=== PATIENT | female | born 1975 | race Caucasian/White ===

== ENCOUNTER → 2019-08-17 | Outpatient (CLI) | payer MEDICARE ==
[2019-08-17 11:17] LABS: Anisocytosis Slight; Basophils % (A) 1 %; Eosinophils # (A) 0.3 k/uL (0-0.7); Eosinophils % (A) 5 %; HCT 35.3 % (34.0-46.0); HGB 10.6 gm/dL (11.4-16.0); Hypochromasia Marked; Lymphocytes # (A) 2.1 k/uL (1.0-4.8); Lymphocytes % (A) 37 %; MCH 24.5 pg (25.0-35.0); MCHC 30.1 g/dL (31.0-37.0); MCV 81.3 fL (80.0-100.0); Mean Platelet Volume 7.3; Monocytes # (A) 0.3 k/uL (0-1.0); Monocytes % (A) 5 %; Neutrophils % (A) 52 %; Platelet Count 268 k/uL (150-450); RBC 4.34 m/uL (3.80-5.40); RDW 16.6 % (11.5-15.5); WBC 5.7 k/uL (3.8-10.6)
[2019-08-17 11:23] LABS: Partial Thromboplastin Time 23.9 sec (22.0-30.0); Prothrombin Time 10.3 sec (9.0-12.0)
[2019-08-17 11:38] LABS: Appearance,Urine Clear (Clear); Bacteria,Urine Rare /hpf; Bilirubin,Urine Negative (Negative); Blood,Urine Negative (Negative); Color,Urine Yellow; Glucose,Urine (UA) Negative (Negative); Ketones,Urine Negative (Negative); Leukocyte Esterase,Urine Small (Negative); Mucus,Urine Many /hpf; Nitrite,Urine Negative (Negative); PH, Urine 6.5 (5.0-8.0); Protein,Urine Trace (Negative); RBC,Urine 1 /hpf (0-5); Specific Gravity,Urine 1.034 (1.001-1.035); Squamous Epithelial Cell,Urine 5 /hpf (0-4); WBC,Urine 4 /hpf (0-5)
[2019-08-17 16:58] LABS: Alpha Fetoprotein, Tumor Mkr 2.6 ng/mL (0.0-7.9)
[2019-08-17 17:02] LABS: % Iron Saturation 5.81 (12.00-45.00); African American GFR (CKD) 137.4 (60.0-200.0); Albumin 4.1 g/dL (3.80-4.90); Albumin/Globulin Ratio 1.71 (1.60-3.17); Anion Gap 10.3 mmol/L (4.00-12.00); Bilirubin, Conjugated 0.2 mg/dL (0.20-0.40); Bilirubin,Unconjugated 0.3 mg/dL; Calcium 8.9 mg/dL (8.7-10.3); Carbon Dioxide 28.7 mmol/L (21.6-31.8); Ferritin 6.2 ng/mL (10.0-291.0); Globulin 2.4 g/dL (1.6-3.3); Non-African American GFR(CKD) 118.5 (60.0-200.0); Potassium 4.3 mmol/L (3.5-5.5); Total Bilirubin 0.5 mg/dL (0.3-1.2); Total Protein 6.5 g/dL (6.2-8.2)
[2019-08-17 17:27] LABS: Hepatitis A Ab, Total Non-Reactive (Non-Reactive); Hepatitis B Surface AB- Quant 636.1 mIU/mL; Hepatitis B Surface Antibody Reactive (Non-Reactive); Hepatitis B Surface Antigen Non-Reactive (Non-Reactive); Hepatitis C IgG Antibody Non-Reactive (Non-Reactive)
[2019-08-18 11:16] LABS: Ceruloplasmin 32.7 mg/dL (20.0-60.0)
== END | disposition home or self-care (01) ==
LOC: LABWHC1 09:16
PROVIDERS: ATTEND Internal Medicine Gastroenterology
DX: K74.69 Other cirrhosis of liver (principal); R30.9 Painful micturition, unspecified; R74.8 Abnormal levels of other serum enzymes
CPT/HCPCS: 36415; 80053; 81001; 82103; 82105; 82248; 82390; 82465; 82728; 82784; 83516; 83540; 83550; 84080; 84478; 85025; 85610; 85730; 86038; 86704; 86706; 86708; 86803; 87340

== ENCOUNTER 2019-10-25 12:10 | Emergency (ER) | payer MEDICARE, OTHER ==
[2019-10-25 12:16] VITALS: TEMP 99.3
[2019-10-25] MEDS ORDERED: KETOROLAC 60 MG/2 ML VIAL IM STA (12:25)
--- NOTE | 2019-10-25 12:27 | ED ---
General Adult HPI - General Chief complaint: Recheck/Abnormal Lab/Rx Stated complaint: Body aches Time Seen by Provider: 10/25/19 12:10 Source: patient, RN notes reviewed, old records reviewed Mode of arrival: ambulatory Limitations: no limitations - History of Present Illness Initial comments: This 44-year-old female who presents emergency department after having had a urinary transfusion at 1:00 on Saturday. Patient states ever since then she's had complete body aches she states it's her joints and as well as the muscle between her joints. Patient states it's diffuse throughout her body. Patient denies any fever chills per patient denies any difficulty breathing shortness breath per patient denies any chest pressure or pain she just describes whole body aching. Patient denies any abdominal pain patient denies any vomiting or diarrhea. - Related Data Home Medications Medication Instructions Recorded Confirmed Levothyroxine Sodium [Synthroid] 150 mcg PO DAILY 02/11/14 12/10/18 metFORMIN HCL 1,000 mg PO BID 04/29/15 12/10/18 clonazePAM [KlonoPIN] 1 mg PO TID 08/24/16 12/10/18 lamoTRIgine [LaMICtal] 200 mg PO BID 08/24/16 12/10/18 sitaGLIPtin PHOSPHATE [Januvia] 100 mg PO DAILY 08/24/16 12/10/18 Vilazodone HCl [Viibryd] 40 mg PO DAILY 10/30/16 12/10/18 Albuterol Nebulized [Ventolin 2.5 mg INHALATION RT-Q4H PRN 12/10/18 12/10/18 Nebulized] Brimonidine Tartrate [Alphagan P 1 drop LEFT EYE BID 12/10/18 12/10/18 0.2% Ophth Soln] Cariprazine HCl [Vraylar] 3 mg PO DAILY 12/10/18 12/10/18 Dorzolamide/Timolol/Pf 1 tab PO BID 12/10/18 12/10/18 [Dorzolamide-Timolol 2%-0.5%] Latanoprost [Xalatan 0.005%] 1 drop BOTH EYES HS 12/10/18 12/10/18 Levofloxacin [Levaquin] 750 mg PO DAILY 12/10/18 12/10/18 Lisdexamfetamine Dimesylate 70 mg PO DAILY 12/10/18 12/10/18 [Vyvanse] Losartan [Cozaar] 50 mg PO DAILY 12/10/18 12/10/18 Omeprazole 20 mg PO DAILY 12/10/18 12/10/18 busPIRone HCL [Buspar] 30 mg PO BID 12/10/18 12/10/18 hydrOXYzine HCL [Atarax] 25 mg PO TID PRN 12/10/18 12/10/18 Allergies Allergy/AdvReac Type Severity Reaction Status Date / Time No Known Allergies Allergy Verified 10/25/19 14:32 Review of Systems ROS Statement: Those systems with pertinent positive or pertinent negative responses have been documented in the HPI. ROS Other: All systems not noted in ROS Statement are negative. Past Medical History Past Medical History: Heart Failure, Diabetes Mellitus, Eye Disorder, GERD/Reflux, Hypertension, Liver Disease, Osteoarthritis (OA), Skin Disorder, Sleep Apnea/CPAP/BIPAP, Thyroid Disorder Additional Past Medical History / Comment(s): Pt has sleep apnea with cpap. Hx heart failure Feb 2014 (patient states he no longer has heart failure-2019). Optic neurititis, left eye, fatty liver, Rosacea on face. History of Any Multi-Drug Resistant Organisms: MRSA Date of last positivie culture/infection: 2013 MDRO Source:: Chin, Nose Past Surgical History: Cholecystectomy, Tonsillectomy Additional Past Surgical History / Comment(s): Kidney stone stent placed left side. States bled out after tonsilectomy at 27 yrs of age and had blood transfus ion. gastric sleeve december 2018 Past Anesthesia/Blood Transfusion Reactions: No Reported Reaction Past Psychological History: Anxiety, Bipolar, Depression Smoking Status: Former smoker Past Alcohol Use History: Occasional Past Drug Use History: None Reported - Past Family History Son(s) Family Medical History: Seizure Disorder Mother Family Medical History: No Reported History Additional Family Medical History / Comment(s): MOTHER IS ALIVE AND DOING WELL A T AGE 56, Bipolar Father Family Medical History: No Reported History Additional Family Medical History / Comment(s): Hepatitis General Exam - General Exam Comments Initial Comments: GENERAL: Patient is well-developed and well-nourished. Patient is nontoxic and well- hydrated and is in mild distress. ENT: Neck is soft and supple. No significant lymphadenopathy is noted. Oropharynx is clear. Moist mucous membranes. Neck has full range of motion without eliciting any pain. EYES: The sclera were anicteric and conjunctiva were pink and moist. Extraocular movements were intact and pupils were equal round and reactive to light. Eyelids were unremarkable. PULMONARY: Unlabored respirations. Good breath sounds bilaterally. No audible rales rhonchi or wheezing was noted. CARDIOVASCULAR: There is a regular rate and rhythm without any murmurs gallops or rubs. ABDOMEN: Soft and nontender with normal bowel sounds. SKIN: Skin is clear with no lesions or rashes and otherwise unremarkable. NEUROLOGIC: Patient is alert and oriented x3. Cranial nerves II through XII are grossly intact. Motor and sensory are also intact. Normal speech, volume and content. Symmetrical smile. MUSCULOSKELETAL: Normal extremities with adequate strength and full range of motion. LYMPHATICS: No significant lymphadenopathy is noted PSYCHIATRIC: Normal psychiatric evaluation. Limitations: no limitations Course Vital Signs 10/25/19 10/25/19 12:12 13:49 Temperature 99.3 F Pulse Rate 85 89 Respiratory 16 16 Rate Blood Pressure 157/78 136/96 O2 Sat by Pulse 100 99 Oximetry Medical Decision Making - Medical Decision Making I spoke with Dr. Hernandez he agreed that the myalgias are probably most likely from the iron transfusion. Patient received Toradol felt no different so she got a shot of Dilaudid felt considerably better. - Lab Data Result diagrams: 10/25/19 13:48 10/25/19 13:48 Lab Results 10/25/19 10/25/19 Range/Units 13:48 13:48 WBC 9.2 (3.8-10.6) k/uL RBC 4.15 (3.80-5.40) m/uL Hgb 10.2 L (11.4-16.0) gm/dL Hct 33.5 L (34.0-46.0) % MCV 80.6 (80.0-100.0) fL MCH 24.6 L (25.0-35.0) pg MCHC 30.6 L (31.0-37.0) g/dL RDW 16.4 H (11.5-15.5) % Plt Count 264 (150-450) k/uL Neutrophils % 81 % Lymphocytes % 9 % Monocytes % 5 % Eosinophils % 2 % Basophils % 1 % Neutrophils # 7.5 (1.3-7.7) k/uL Lymphocytes # 0.8 L (1.0-4.8) k/uL Monocytes # 0.5 (0-1.0) k/uL Eosinophils # 0.2 (0-0.7) k/uL Basophils # 0.0 (0-0.2) k/uL Hypochromasia Marked Anisocytosis Slight Sodium 134 L (137-145) mmol/L Potassium 4.4 (3.5-5.1) mmol/L Chloride 101 (98-107) mmol/L Carbon Dioxide 26 (22-30) mmol/L Anion Gap 7 mmol/L BUN 7 (7-17) mg/dL Creatinine 0.45 L (0.52-1.04) mg/dL Est GFR (CKD-EPI)AfAm >90 (>60 ml/min/1.73 sqM) Est GFR (CKD-EPI)NonAf >90 (>60 ml/min/1.73 sqM) Glucose 97 (74-99) mg/dL Calcium 9.3 (8.4-10.2) mg/dL Total Bilirubin 1.0 (0.2-1.3) mg/dL AST 33 (14-36) U/L ALT 20 (4-34) U/L Alkaline Phosphatase 145 H (38-126) U/L Creatine Kinase 43 (30-135) U/L C-Reactive Protein 28.8 H (<10.0) mg/L Total Protein 6.9 (6.3-8.2) g/dL Albumin 4.1 (3.5-5.0) g/dL Disposition Clinical Impression: Myalgia and myositis, unspecified Disposition: HOME SELF-CARE Condition: Good Is patient prescribed a controlled substance at d/c from ED?: No Referrals: Nonstaff,Physician [Primary Care Provider] - 1-2 days Time of Disposition: 14:36
[2019-10-25] MEDS ORDERED: HYDROmorphone 1 MG/ML 1 ML SYRINGE IVP STA (13:31)
[2019-10-25 14:03] LABS: Anisocytosis Slight; Basophils % (A) 1 %; Eosinophils # (A) 0.2 k/uL (0-0.7); Eosinophils % (A) 2 %; HCT 33.5 % (34.0-46.0); HGB 10.2 gm/dL (11.4-16.0); Hypochromasia Marked; Lymphocytes # (A) 0.8 k/uL (1.0-4.8); Lymphocytes % (A) 9 %; MCH 24.6 pg (25.0-35.0); MCHC 30.6 g/dL (31.0-37.0); MCV 80.6 fL (80.0-100.0); Mean Platelet Volume 7.4; Monocytes # (A) 0.5 k/uL (0-1.0); Monocytes % (A) 5 %; Neutrophils # (A) 7.5 k/uL (1.3-7.7); Neutrophils % (A) 81 %; Platelet Count 264 k/uL (150-450); RBC 4.15 m/uL (3.80-5.40); RDW 16.4 % (11.5-15.5); WBC 9.2 k/uL (3.8-10.6)
[2019-10-25 14:14] LABS: ALT 20 U/L (4-34); AST 33 U/L (14-36); African American GFR (CKD) >90 (>60 ml/min/1.73 sqM); Albumin 4.1 g/dL (3.5-5.0); Alkaline Phosphatase 145 U/L (38-126); Anion Gap 7 mmol/L; Blood Urea Nitrogen 7 mg/dL (7-17); C Reactive Protein 28.8 mg/L (<10.0); Calcium 9.3 mg/dL (8.4-10.2); Carbon Dioxide 26 mmol/L (22-30); Chloride 101 mmol/L (98-107); Creatine Kinase 43 U/L (30-135); Glucose 97 mg/dL (74-99); Non-African American GFR(CKD) >90 (>60 ml/min/1.73 sqM); Potassium 4.4 mmol/L (3.5-5.1); Sodium 134 mmol/L (137-145); Total Protein 6.9 g/dL (6.3-8.2)
[2019-10-25] MEDS ORDERED: ACET/COD 300 MG/30 MG STARTER PACK 6 TAB BTL PO STA (14:36)
[2019-10-25 14:48] VITALS: BP 123/74; PULSE 79; RESP 18
== END 2019-10-25 14:47 | disposition home or self-care (01) ==
LOC: EC 12:10
DX: M60.9 Myositis, unspecified (principal); I11.0 Hypertensive heart disease with heart failure; I50.9 Heart failure, unspecified; K21.9 Gastro-esophageal reflux disease without esophagitis; M19.90 Unspecified osteoarthritis, unspecified site; G47.30 Sleep apnea, unspecified; E07.9 Disorder of thyroid, unspecified; E11.41 Type 2 diabetes mellitus with diabetic mononeuropathy; F41.9 Anxiety disorder, unspecified; F31.9 Bipolar disorder, unspecified; Z79.890 Hormone replacement therapy; Z79.84 Long term (current) use of oral hypoglycemic drugs; Z79.899 Other long term (current) drug therapy; Z99.89 Dependence on other enabling machines and devices; Z87.891 Personal history of nicotine dependence; Z86.14 Personal history of Methicillin resistant Staphylococcus aureus infection
CPT/HCPCS: 36415; 80053; 82550; 85025; 86140; 99284; 96374; 96372; J1885; J1170

== ENCOUNTER 2019-10-25 21:43 | Observation (INO) | payer MEDICARE, OTHER ==
--- NOTE | 2019-10-25 22:09 | ED ---
Recheck HPI - General Chief Complaint: Recheck/Abnormal Lab/Rx Stated Complaint: Body aches, fever Time Seen by Provider: 10/25/19 22:02 Source: patient Mode of arrival: ambulatory Limitations: no limitations - History of Present Illness Initial Comments: This is a 44-year-old female presented for reevaluation diffuse body aches but now presented with fever today. Patient recently going through iron transfusions and is closer severe aches and pains, she was seen earlier in the ER felt better upon discharge was symptoms have returned. Patient can't rest comfortably she has no real significant shortness of breath or chest pain no nausea vomiting or diarrhea. MD Complaint: other (Reevaluation for continued pain now with fever) -: days(s) Returns Today for: persistent/worsening pain related to initial visit Symptoms Since Prior Visit: worsening pain, worsening swelling Context: planned re-check Associated Symptoms: fever, chills, abdominal pain Treatments Prior to Arrival: other medications - Related Data Home Medications Medication Instructions Recorded Confirmed Levothyroxine Sodium [Synthroid] 150 mcg PO DAILY 02/11/14 10/25/19 metFORMIN HCL 1,000 mg PO BID 04/29/15 10/25/19 clonazePAM [KlonoPIN] 1 mg PO BID PRN 08/24/16 10/25/19 lamoTRIgine [LaMICtal] 200 mg PO BID 08/24/16 10/25/19 Brimonidine Tartrate [Alphagan P 1 drop LEFT EYE BID 12/10/18 10/25/19 0.2% Ophth Soln] Dorzolamide/Timolol/Pf 1 drop LEFT EYE BID 12/10/18 10/25/19 [Dorzolamide-Timolol 2%-0.5%] Latanoprost [Xalatan 0.005%] 1 drop BOTH EYES HS 12/10/18 10/25/19 Losartan [Cozaar] 50 mg PO DAILY 12/10/18 10/25/19 busPIRone HCL [Buspar] 30 mg PO BID 12/10/18 10/25/19 Biotin 5 mg PO DAILY 10/25/19 10/25/19 [place] Carbonate 300 mg PO DAILY 10/25/19 10/25/19 [place] 600 mg PO HS 10/25/19 10/25/19 Multivitamins, Thera [Multivitamin 1 tab PO DAILY 10/25/19 10/25/19 (formulary)] Pantoprazole Sodium 20 mg PO BID 10/25/19 10/25/19 Sucralfate [Carafate] 1 gm PO ACHS 10/25/19 10/25/19 Allergies Allergy/AdvReac Type Severity Reaction Status Date / Time No Known Allergies Allergy Verified 10/25/19 23:13 Review of Systems ROS Statement: Those systems with pertinent positive or pertinent negative responses have been documented in the HPI. ROS Other: All systems not noted in ROS Statement are negative. Past Medical History Past Medical History: Heart Failure, Diabetes Mellitus, Eye Disorder, GERD/Reflux, Hypertension, Liver Disease, Osteoarthritis (OA), Skin Disorder, Sleep Apnea/CPAP/BIPAP, Thyroid Disorder Additional Past Medical History / Comment(s): Pt has sleep apnea with cpap. Hx heart failure Feb 2014 (patient states he no longer has heart failure-2018). Optic neurititis, left eye, fatty liver, Rosacea on face. History of Any Multi-Drug Resistant Organisms: MRSA Date of last positivie culture/infection: 2013 MDRO Source:: Chin, Nose Past Surgical History: Cholecystectomy, Tonsillectomy Additional Past Surgical History / Comment(s): Kidney stone stent placed left side. States bled out after tonsilectomy at 27 yrs of age and had blood transfusion. gastric sleeve december 2018 Past Anesthesia/Blood Transfusion Reactions: No Reported Reaction Past Psychological History: Anxiety, Bipolar, Depression Smoking Status: Former smoker Past Alcohol Use History: Occasional Past Drug Use History: None Reported - Past Family History Son(s) Family Medical History: Seizure Disorder Mother Family Medical History: No Reported History Additional Family Medical History / Comment(s): MOTHER IS ALIVE AND DOING WELL AT AGE 56, Bipolar Father Family Medical History: No Reported History Additional Family Medical History / Comment(s): Hepatitis General Exam Limitations: no limitations General appearance: alert, in no apparent distress Head exam: Present: atraumatic, normocephalic, normal inspection Eye exam: Present: normal appearance, PERRL, EOMI. Absent: scleral icterus, conjunctival injection, periorbital swelling ENT exam: Present: normal exam, mucous membranes moist Neck exam: Present: normal inspection. Absent: tenderness, meningismus, lymphadenopathy Respiratory exam: Present: normal lung sounds bilaterally. Absent: respiratory distress, wheezes, rales, rhonchi, stridor Cardiovascular Exam: Present: regular rate, normal rhythm, normal heart sounds. Absent: systolic murmur, diastolic murmur, rubs, gallop, clicks GI/Abdominal exam: Present: soft, normal bowel sounds. Absent: distended, tenderness, guarding, rebound, rigid Extremities exam: Present: normal inspection, full ROM, normal capillary refill. Absent: tenderness, pedal edema, joint swelling, calf tenderness Back exam: Present: normal inspection Neurological exam: Present: alert, oriented X3, CN II-XII intact Psychiatric exam: Present: normal affect, normal mood Skin exam: Present: warm, dry, intact, normal color. Absent: rash Course Vital Signs 10/25/19 10/25/19 21:54 23:49 Temperature 103.1 F H 102.4 F H Pulse Rate 98 101 H Respiratory 18 18 Rate Blood Pressure 108/62 160/70 O2 Sat by Pulse 100 97 Oximetry - Reevaluation(s) Reevaluation #1: 10/25/19 23:00 Medical records reviewed 10/25/19 23:00 Did evaluate patient's prior ER visits for Reevaluation #2: 10/25/19 23:00 Patient with improved symptoms here in the ER - Consultations Consultation #1: Spoke with Dr. Scott who is okay with patient Medical Decision Making - Medical Decision Making 44 female DF for evaluation patient DF for evaluation of diffuse body aches and pains now of fever. No shortness of breath currently. No abdominal pain but does have just diffuse pain in general. Patient will be admitted for symptomatic therapy - Lab Data Result diagrams: 10/25/19 23:00 10/25/19 23:00 - EKG Data -: EKG Interpreted by Me (EKG is sinus rhythm 82 [place] 128 QRS 78 QTc 408) - Radiology Data Radiology results: report reviewed (Chest x-rays negative for acute disease), image reviewed Disposition Clinical Impression: Myalgia and myositis, unspecified, Fever Disposition: ADMITTED IP TO THIS [facility] Condition: Fair Is patient prescribed a controlled substance at d/c from ED?: No
[2019-10-25] MEDS ORDERED: SODIUM CHLORIDE 0.9% 1,000 ML IV ONE (22:58)
[2019-10-25] MEDS ORDERED: KETOROLAC 30 MG/ML 1 ML VIAL IVP STA (22:58)
[2019-10-25] MEDS ORDERED: HYDROmorphone 1 MG/ML 1 ML SYRINGE IVP STA (22:58)
[2019-10-25 23:09] LABS: Anisocytosis Slight; Basophils % (A) 0 %; Eosinophils # (A) 0.2 k/uL (0-0.7); Eosinophils % (A) 2 %; HCT 36.5 % (34.0-46.0); HGB 11.5 gm/dL (11.4-16.0); Hypochromasia Marked; Lymphocytes # (A) 1.1 k/uL (1.0-4.8); Lymphocytes % (A) 11 %; MCH 25.8 pg (25.0-35.0); MCHC 31.4 g/dL (31.0-37.0); MCV 82.1 fL (80.0-100.0); Monocytes # (A) 0.4 k/uL (0-1.0); Monocytes % (A) 4 %; Neutrophils % (A) 83 %; Platelet Count 258 k/uL (150-450); RBC 4.45 m/uL (3.80-5.40); RDW 16.1 % (11.5-15.5); WBC 10.9 k/uL (3.8-10.6)
[2019-10-25] MEDS ORDERED: ACETAMINOPHEN TAB 500 MG TAB PO STA (23:20)
[2019-10-25] MEDS ORDERED: IBUPROFEN 400 MG TAB PO PRN (23:20)
[2019-10-25] MEDS ORDERED: IBUPROFEN 600 MG TAB PO STA (23:20)
[2019-10-25 23:25] LABS: D-Dimer 0.52 mg/L FEU (<0.60); INR 1.1 (<1.2); Partial Thromboplastin Time 25.5 sec (22.0-30.0)
[2019-10-25 23:29] LABS: ALT 27 U/L (4-34); AST 43 U/L (14-36); African American GFR (CKD) >90 (>60 ml/min/1.73 sqM); Albumin 4.8 g/dL (3.5-5.0); Alkaline Phosphatase 175 U/L (38-126); Anion Gap 10 mmol/L; Blood Urea Nitrogen 9 mg/dL (7-17); C Reactive Protein 61.4 mg/L (<10.0); Calcium 9.4 mg/dL (8.4-10.2); Carbon Dioxide 26 mmol/L (22-30); Chloride 98 mmol/L (98-107); Glucose 102 mg/dL (74-99); LDH 471 U/L (313-618); Magnesium 1.7 mg/dL (1.6-2.3); Non-African American GFR(CKD) >90 (>60 ml/min/1.73 sqM); Sodium 134 mmol/L (137-145); Total Bilirubin 1.4 mg/dL (0.2-1.3); Total Protein 7.9 g/dL (6.3-8.2)
--- NOTE | 2019-10-25 23:45 | XR ---
EXAMINATION TYPE: XR chest 1V portable DATE OF EXAM: 10/25/2019 COMPARISON: 12/10/2018 HISTORY: Pneumonia Short of breath TECHNIQUE: FINDINGS: There is no heart failure nor confluent pneumonic infiltrate. Costophrenic angles are clear . There are no hilar masses. There are small calcified granuloma at the pulmonary ronald. Bony thorax i s intact. There is no pleural effusion. IMPRESSION: No active cardiopulmonary disease. No adverse change..
[2019-10-26] MEDS: LITHIUM CARBONATE 300 MG CAP PO SCH ×3 (02:01→22:04)
--- NOTE | 2019-10-26 03:26 | P.HPIM ---
History of Present Illness H&P Date: 10/26/19 Chief Complaint: fever diffuse body aches 44 year old female with gastric bypass surgery Dec 2018, DM, HTN, GERD patient states that she was at baseline status of health up until saturday , when she received scheduled iron infusion due to chronic anemia from her surgery. the n she started having body aches the next day , which got worse today, she came to the ED and ran some tests, then was sent home with tylenol and codiene. however this evening her body aches got even worse , associated with fever, and she decided to come to the ED again. she denies any URI symptoms , loss of smell or taste sensation, denies sore throat or sick contact. denies any acute diarrhea, but she has chronic irritable bowel. denies any urinary changes. in [facility] ED blood work showed mild leukocytosis. but she had high fever of 103. she is admitted for further workup Review of Systems Pertinent positives as noted in HPI. All other systems were reviewed and are negative Past Medical History Past Medical History: Heart Failure, Diabetes Mellitus, Eye Disorder, GERD/Reflux, Hypertension, Liver Disease, Osteoarthritis (OA), Skin Disorder, Sleep Apnea/CPAP/BIPAP, Thyroid Disorder Additional Past Medical History / Comment(s): Pt has sleep apnea with cpap. Hx heart failure Feb 2014 (patient states he no longer has heart failure-2019). Optic neurititis, left eye, fatty liver, Rosacea on face. History of Any Multi-Drug Resistant Organisms: MRSA Date of last positivie culture/infection: 2013 MDRO Source:: Chin, Nose Past Surgical History: Cholecystectomy, Tonsillectomy Additional Past Surgical History / Comment(s): Kidney stone stent placed left side. States bled out after tonsilectomy at 27 yrs of age and had blood transfusion. gastric sleeve december 2018 Past Anesthesia/Blood Transfusion Reactions: No Reported Reaction Past Psychological History: Anxiety, Bipolar, Depression Additional Psychological History / Comment(s): PT LIVES WITH 8 YR OLD SON. 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 Smoking Status: Former smoker Past Alcohol Use History: Occasional Additional Past Alcohol Use History / Comment(s): Patient states that she drink alcohol once a week. Past Drug Use History: None Reported - Past Family History Son(s) Family Medical History: Seizure Disorder Mother Family Medical History: No Reported History Additional Family Medical History / Comment(s): MOTHER IS ALIVE AND DOING WELL AT AGE 56, Bipolar Father Family Medical History: No Reported History Additional Family Medical History / Comment(s): Hepatitis Medications and Allergies Home Medications Medication Instructions Recorded Confirmed Type Levothyroxine Sodium [Synthroid] 150 mcg PO DAILY 02/11/14 10/25/19 History metFORMIN HCL 1,000 mg PO BID 04/29/15 10/25/19 History clonazePAM [KlonoPIN] 1 mg PO BID PRN 08/24/16 10/25/19 History lamoTRIgine [LaMICtal] 200 mg PO BID 08/24/16 10/25/19 History Brimonidine Tartrate [Alphagan P 1 drop LEFT EYE BID 12/10/18 10/25/19 History 0.2% Ophth Soln] Dorzolamide/Timolol/Pf 1 drop LEFT EYE BID 12/10/18 10/25/19 History [Dorzolamide-Timolol 2%-0.5%] Latanoprost [Xalatan 0.005%] 1 drop BOTH EYES HS 12/10/18 10/25/19 History Losartan [Cozaar] 50 mg PO DAILY 12/10/18 10/25/19 History busPIRone HCL [Buspar] 30 mg PO BID 12/10/18 10/25/19 History Biotin 5 mg PO DAILY 10/25/19 10/25/19 History [place] Carbonate 300 mg PO DAILY 10/25/19 10/25/19 History [place] Carbonate 600 mg PO HS 10/25/19 10/25/19 History Multivitamins, Thera [Multivitamin 1 tab PO DAILY 10/25/19 10/25/19 History (formulary)] Pantoprazole Sodium 20 mg PO BID 10/25/19 10/25/19 History Sucralfate [Carafate] 1 gm PO ACHS 10/25/19 10/25/19 History Allergies Allergy/AdvReac Type Severity Reaction Status Date / Time No Known Allergies Allergy Verified 10/25/19 23:13 Physical Exam Vitals: Vital Signs Temp Pulse Resp BP Pulse Ox 10/25/19 23:49 102.4 F H 101 H 18 160/70 97 10/25/19 21:54 103.1 F H 98 18 108/62 100 Intake and Output 10/25/19 10/25/19 10/26/19 14:59 22:59 06:59 Other: Weight 90.265 kg 90.265 kg Constitutional: No acute distress, conversant, pleasant Eyes: Anicteric sclerae, moist conjunctiva, Pupils equal round reactive to light ENMT: NC/AT Oropharynx clear, no erythema, or exudates Neck: Supple, FROM, no masses, or JVD No carotid bruits No thyromegaly Lungs: Clear to auscultation Clear to percussion Normal respiratory effort, no accessory muscle use Cardiovascular: Heart regular in rate and rhythm, No murmurs, gallops, or rubs No peripheral edema Abdominal: Soft, parada sign positive otherwise Nontender, no guarding, rebound or rigidity Abdomen moving with respiration Normoactive bowel sounds No hepatomegaly, No splenomegaly No palpable mass No abdominal wall hernia noted Skin: Normal temperature, tone, texture, turgor No induration No subcutaneous nodules No rash, lesions No ulcers Extremities: No digital cyanosis No clubbing Pedal pulses intact and symmetrical Radial pulses intact and symmetrical No calf tenderness Psychiatric: Alert and oriented to person, place and time Appropriate affect fair judgement Neuro Muscles Strength 5/5 in all 4 extremities Sensation to light touch grossly present throughout Cranial nerves II-XII grossly intact No focal sensory deficits Lymphatics: palpable cervical /submandibular LN no palpable supraclavicular , or inguinal lymph nodes Results CBC & Chem 7: 10/25/19 23:00 10/25/19 23:00 Labs: Abnormal Lab Results - Last 24 Hours (Table) 10/25/19 10/25/19 Range/Units 23:00 23:00 WBC 10.9 H (3.8-10.6) k/uL RDW 16.1 H (11.5-15.5) % Neutrophils # 9.0 H (1.3-7.7) k/uL Sodium 134 L (137-145) mmol/L Glucose 102 H (74-99) mg/dL Total Bilirubin 1.4 H (0.2-1.3) mg/dL AST 43 H (14-36) U/L Alkaline Phosphatase 175 H (38-126) U/L C-Reactive Protein 61.4 H (<10.0) mg/L Thrombosis Risk Factor Assmnt - Choose All That Apply Any of the Below Risk Factors Present?: Yes Each Factor Represents 1 point: Age 41-60 years, Obesity (BMI >25) Other Risk Factors: No Thrombosis Risk Factor Assessment Total Risk Factor Score: 2 Thrombosis Risk Factor Assessment Level: Low Risk Assessment and Plan Assessment: fever and diffuse body aches, rule out COVID 19, vs possible side effect of iron dextran infusion supportive care symptomtatic control follow up cultures, COVID 19 testing LDH , D dimer , lymphocytes within normal limits check CPK CRP elevated CXR negative check liver US, patient has history of gastric bypass 12/2018 history of cholecystectomy chronic conditions DM, hold oral hypoglycemic agents , start insulin sliding scale GERD, PPI Hypertension , resume home meds hypothyroid , levothyroxine CODE STATUS full code DVT prophylaxis: heparin sc tid Discussed with: Patient, ER, RN Anticipated length of stay < than [address]: home A total of 75 minutes was spent on the care of this complex patient more than 50% of the time was spent in counseling and care coordination.
[2019-10-26] MEDS: HYDROmorphone 1 MG/ML 1 ML SYRINGE IVP PRN ×4 (04:08→19:31)
[2019-10-26] MEDS: ACETAMINOPHEN TAB 325 MG TAB PO PRN ×3 (06:25→19:31)
[2019-10-26] MEDS: LEVOTHYROXINE 75 MCG TAB PO SCH (06:25)
[2019-10-26 07:15] LABS: Glucose,Whole Blood 132 mg/dL (75-99)
[2019-10-26] MEDS: lamoTRIgine 100 MG TAB PO SCH ×2 (07:51→22:04)
[2019-10-26] MEDS: LOSARTAN 50 MG TAB PO SCH (07:51)
[2019-10-26] MEDS: PANTOPRAZOLE 40 MG TABLET PO SCH ×2 (07:51→22:05)
[2019-10-26] MEDS: INSULIN ASPART (NovoLOG) 100 UNIT/ML VIAL SQ SCH ×4 (07:51→21:10)
[2019-10-26] MEDS: HEPARIN SODIUM,PORCINE 5,000 UNIT/ML 1 ML VIAL SQ SCH ×3 (07:51→23:50)
[2019-10-26] MEDS: SUCRALFATE 1 GM TAB PO SCH ×4 (07:51→22:05)
[2019-10-26] MEDS: busPIRone HCl 10 MG TAB PO SCH ×2 (07:51→22:04)
[2019-10-26] MEDS: DORZOLAMIDE-TIMOLOL 2.23%/0.68 10ML BTL LEFT EYE SCH ×2 (07:52→22:04)
[2019-10-26] MEDS: BRIMONIDINE TARTRATE 0.2% DROPS 5 ML BTL LEFT EYE SCH ×2 (07:52→22:03)
--- NOTE | 2019-10-26 09:27 | US ---
EXAMINATION TYPE: US liver DATE OF EXAM: 10/26/2019 COMPARISON: CT Chest CLINICAL HISTORY: elevated liver enzymes, tenderness to exam. Elevated LFT's, GB removed EXAM MEASUREMENTS: Liver Length: 24.5 cm CBD: 0.6 cm Right Kidney: 13.4 x 4.2 x 5.6 cm Pancreas: wnl, tail obscured by overlying bowel gas Liver: Enlarged, heterogeneous, difficult to penetrate Gallbladder: Surgically absent Evidence for sonographic Mendosa's sign: No CBD: wnl Right Kidney: wnl IMPRESSION: Fatty liver.
[2019-10-26 11:41] LABS: Glucose,Whole Blood 119 mg/dL (75-99)
[2019-10-26 12:14] LABS: Ferritin 633.5 ng/mL (10.0-291.0)
--- NOTE | 2019-10-26 14:46 | P.PN ---
Subjective Progress Note Date: 10/26/19 Patient is a 44-year-old female with a PMH of type II DM, hypothyroidism, iron deficiency anemia, and hypertension who had presented to the ED with complaints of fever and myalgias. She was thereby admitted to the medicine service with rule out Covid-19. The patient was seen and evaluated at the bedside on 10/25. She reported continued myalgias and fever. She denied any additional complaints. Denied dysuria, shortness of breath, abdominal pain, nausea, vomiting, or diarrhea. Objective - Vital Signs Vital signs: Vital Signs Temp 102.3 F H 10/26/19 11:54 Pulse 103 H 10/26/19 07:00 Resp 18 10/26/19 07:00 BP 131/73 10/26/19 07:00 Pulse Ox 96 10/26/19 07:00 Intake & Output 10/25/19 10/26/19 10/26/19 18:59 06:59 18:59 Weight 90.265 kg Other: Voiding Method Toilet - Exam General: Non-toxic, in no acute distress, appears stated age, obese HEENT: NC/AT, anicteric sclerae, moist conjunctiva, no lid-lag, PERRLA Cardiovascular: S1/S2 wnl, no murmurs, rubs, or gallops Lungs: Clear to auscultation, normal respiratory effort, no accessory muscle use Abdominal: Soft, non-tender, non-distended, no guarding, rebound, or rigidity Skin: Warm, dry Extremities: No edema or contractures Psychiatric: Alert and oriented to person, place and time, appropriate affect Neuro: CN II-XII grossly intact, Strength 5/5 in all 4 extremities, Speech intact, Sensation to light touch grossly intact throughout - Labs CBC & Chem 7: 10/25/19 23:00 10/25/19 23:00 Labs: Abnormal Lab Results - Last 24 Hours (Table) 10/25/19 10/25/19 10/25/19 Range/Units 23:00 23:00 23:00 WBC 10.9 H (3.8-10.6) k/uL RDW 16.1 H (11.5-15.5) % Neutrophils # 9.0 H (1.3-7.7) k/uL Sodium 134 L (137-145) mmol/L Glucose 102 H (74-99) mg/dL POC Glucose (mg/dL) (75-99) mg/dL Ferritin 633.5 H (10.0-291.0) ng/mL Total Bilirubin 1.4 H (0.2-1.3) mg/dL AST 43 H (14-36) U/L Alkaline Phosphatase 175 H (38-126) U/L C-Reactive Protein 61.4 H (<10.0) mg/L Procalcitonin 0.16 H (0.02-0.09) ng/mL 10/26/19 10/26/19 Range/Units 07:14 11:39 WBC (3.8-10.6) k/uL RDW (11.5-15.5) % Neutrophils # (1.3-7.7) k/uL Sodium (137-145) mmol/L Glucose (74-99) mg/dL POC Glucose (mg/dL) 132 H 119 H (75-99) mg/dL Ferritin (10.0-291.0) ng/mL Total Bilirubin (0.2-1.3) mg/dL AST (14-36) U/L Alkaline Phosphatase (38-126) U/L C-Reactive Protein (<10.0) mg/L Procalcitonin (0.02-0.09) ng/mL Assessment and Plan Plan: Myalgias, fever, high suspicion for Covid-19 -Testing pending -Ferritin, pro-calcitonin, and CRP elevated -Liver ultrasound showing fatty infiltration otherwise unremarkable -Supportive care Type II DM -Lispro sliding scale blood glucose monitoring -Check A1c Hypertension, hypothyroidism -Continue with home meds DVT prophylaxis -Heparin subq The patient is admitted with an anticipated less than 2 midnight stay for evaluation of fever, myalgias CODE STATUS: Full Code Discussed with: Patient Anticipated discharge date: 1-[address]: Home A total of 30 minutes was spent on the care of this complex patient more than 50% of the time was spent in counseling and care coordination.
[2019-10-26 16:22] LABS: Glucose,Whole Blood 110 mg/dL (75-99)
--- NOTE | 2019-10-26 17:17 | P.CONS ---
History of Present Illness - Reason for Consult Consult date: 10/26/19 Reaction to parental Iron Requesting physician: Matthieu Resendiz - Chief Complaint Fever/pain - History of Present Illness Loan is a 44 year old female who recently received her firs parental iron infusion through build and deployment engineer at [facility] [address] [place]. Apparently when she returned home started to note some body aches, fevers and chills. Her fever reached a max of 103 therefore she presented to Emergency. Review of Systems A 14 point review of systems assessed and completed and all negative except HPI Past Medical History Past Medical History: Heart Failure, Diabetes Mellitus, Eye Disorder, GERD/Reflux, Hypertension, Liver Disease, Osteoarthritis (OA), Skin Disorder, Sleep Apnea/CPAP/BIPAP, Thyroid Disorder Additional Past Medical History / Comment(s): Pt has sleep apnea with cpap. Hx heart failure Feb 2014 (patient states he no longer has heart failure-2019). Optic neurititis, left eye, fatty liver, Rosacea on face. History of Any Multi-Drug Resistant Organisms: MRSA Year Discovered:: 2013 MDRO Source:: Chin, Nose Past Surgical History: Cholecystectomy, Tonsillectomy Additional Past Surgical History / Comment(s): Kidney stone stent placed left side. States bled out after tonsilectomy at 27 yrs of age and had blood transf usion. gastric sleeve december 2018 Past Anesthesia/Blood Transfusion Reactions: No Reported Reaction Past Psychological History: Anxiety, Bipolar, Depression Smoking Status: Former smoker Past Alcohol Use History: Occasional Past Drug Use History: None Reported - Past Family History Son(s) Family Medical History: Seizure Disorder Mother Family Medical History: No Reported History Additional Family Medical History / Comment(s): MOTHER IS ALIVE AND DOING WELL AT AGE 56, Bipolar Father Family Medical History: No Reported History Additional Family Medical History / Comment(s): Hepatitis Medications and Allergies Home Medications Medication Instructions Recorded Confirmed Type Levothyroxine Sodium [Synthroid] 150 mcg PO DAILY 02/11/14 10/25/19 History metFORMIN HCL 1,000 mg PO BID 04/29/15 10/25/19 History clonazePAM [KlonoPIN] 1 mg PO BID PRN 08/24/16 10/25/19 History lamoTRIgine [LaMICtal] 200 mg PO BID 08/24/16 10/25/19 History Brimonidine Tartrate [Alphagan P 1 drop LEFT EYE BID 12/10/18 10/25/19 History 0.2% Ophth Soln] Dorzolamide/Timolol/Pf 1 drop LEFT EYE BID 12/10/18 10/25/19 History [Dorzolamide-Timolol 2%-0.5%] Latanoprost [Xalatan 0.005%] 1 drop BOTH EYES HS 12/10/18 10/25/19 History Losartan [Cozaar] 50 mg PO DAILY 12/10/18 10/25/19 History busPIRone HCL [Buspar] 30 mg PO BID 12/10/18 10/25/19 History Biotin 5 mg PO DAILY 10/25/19 10/25/19 History [place] Carbonate 300 mg PO DAILY 10/25/19 10/25/19 History [place] Carbonate 600 mg PO HS 10/25/19 10/25/19 History Multivitamins, Thera [Multivitamin 1 tab PO DAILY 10/25/19 10/25/19 History (formulary)] Pantoprazole Sodium 20 mg PO BID 10/25/19 10/25/19 History Sucralfate [Carafate] 1 gm PO ACHS 10/25/19 10/25/19 History Allergies Allergy/AdvReac Type Severity Reaction Status Date / Time No Known Allergies Allergy Verified 10/25/19 23:13 Physical Exam Vitals: Vital Signs Temp Pulse Pulse Resp BP BP Pulse Ox 10/26/19 15:00 100.6 F H 85 18 136/72 96 10/26/19 11:54 102.3 F H 10/26/19 07:00 99.5 F 103 H 18 131/73 96 10/26/19 03:40 16 10/26/19 00:00 100.4 F H 99 18 139/71 93 L 10/25/19 23:49 102.4 F H 101 H 18 160/70 97 10/25/19 21:54 103.1 F H 98 18 108/62 100 Intake and Output 10/26/19 10/26/19 10/26/19 06:59 14:59 22:59 Other: Voiding Method Toilet # Voids 2 Weight 90.265 kg Gen: ALert and oriented, nad Neck: Supple No adenopathy Lungs: CTA bilateral, no increased effort Heart: RRR Abdomen: Soft, non distended, generalized tenderness no edema no rash Psych: Anxious Results CBC & Chem 7: 10/25/19 23:00 10/25/19 23:00 Labs: Abnormal Lab Results - Last 24 Hours (Table) 10/25/19 10/25/19 10/25/19 Range/Units 23:00 23:00 23:00 WBC 10.9 H (3.8-10.6) k/uL RDW 16.1 H (11.5-15.5) % Neutrophils # 9.0 H (1.3-7.7) k/uL Sodium 134 L (137-145) mmol/L Glucose 102 H (74-99) mg/dL POC Glucose (mg/dL) (75-99) mg/dL Ferritin 633.5 H (10.0-291.0) ng/mL Total Bilirubin 1.4 H (0.2-1.3) mg/dL AST 43 H (14-36) U/L Alkaline Phosphatase 175 H (38-126) U/L C-Reactive Protein 61.4 H (<10.0) mg/L Procalcitonin 0.16 H (0.02-0.09) ng/mL 10/26/19 10/26/19 10/26/19 Range/Units 07:14 11:39 16:22 WBC (3.8-10.6) k/uL RDW (11.5-15.5) % Neutrophils # (1.3-7.7) k/uL Sodium (137-145) mmol/L Glucose (74-99) mg/dL POC Glucose (mg/dL) 132 H 119 H 110 H (75-99) mg/dL Ferritin (10.0-291.0) ng/mL Total Bilirubin (0.2-1.3) mg/dL AST (14-36) U/L Alkaline Phosphatase (38-126) U/L C-Reactive Protein (<10.0) mg/L Procalcitonin (0.02-0.09) ng/mL Comments: abd us Chest x-ray: report reviewed Assessment and Plan (1) Fever Current Visit: Yes Status: Acute Code(s): R50.9 - FEVER, UNSPECIFIED SNOMED Code(s): 685821643 (2) Myalgia and myositis, unspecified Current Visit: Yes Status: Acute Code(s): BBQ0239 - SNOMED Code(s): 44557426 Plan: Assessment and Recommendations: 1. Acute Progressive Myalgias: - Worsening since IV Faraheme Saturday in [facility] Office - Inflammatory work-up - Add claritin 2. Fever: T Max 103 - WIthin 24 hours 100.6 - Await chun cultures - Await blood cultures - Await COVID - ID COnsultation 3. Anxiety/Depression 4. Iron Deficiency anemia: POssible reaction to faraheme - Unlikely reaction to faraheme and more likely underlying infectious problem which may have been exaccerbated with infusion - Also check underlying inflammatory etiology physician Attest: I have completed the full history and physical and agree with above dictation dictated as a scribe
[2019-10-26] MEDS: LORATADINE 10 MG TAB PO SCH (18:09)
[2019-10-26 19:10] LABS: C Reactive Protein 180.6 mg/L (<10.0)
[2019-10-26] MEDS ORDERED: LATANOPROST 0.005% OPHTH DROPS 2.5 ML BTL BOTH EYES SCH (21:00)
[2019-10-26 21:03] LABS: Glucose,Whole Blood 168 mg/dL (75-99)
[2019-10-27] MEDS: HYDROmorphone 1 MG/ML 1 ML SYRINGE IVP PRN ×3 (00:13→10:59)
[2019-10-27 03:44] LABS: Appearance,Urine Clear (Clear); Bacteria,Urine Rare /hpf; Bilirubin,Urine Negative (Negative); Blood,Urine Negative (Negative); Color,Urine Yellow; Glucose,Urine (UA) Negative (Negative); Ketones,Urine Negative (Negative); Leukocyte Esterase,Urine Small (Negative); Mucus,Urine Few /hpf; Nitrite,Urine Negative (Negative); Protein,Urine Trace (Negative); RBC,Urine 1 /hpf (0-5); Specific Gravity,Urine 1.018 (1.001-1.035); Squamous Epithelial Cell,Urine 2 /hpf (0-4); WBC,Urine 7 /hpf (0-5)
[2019-10-27] MEDS: ACETAMINOPHEN TAB 325 MG TAB PO PRN (04:44)
[2019-10-27] MEDS: LEVOTHYROXINE 75 MCG TAB PO SCH (05:30)
[2019-10-27 07:31] LABS: Glucose,Whole Blood 129 mg/dL (75-99)
[2019-10-27 08:10] LABS: Anisocytosis Slight; Basophils % (A) 0 %; Eosinophils # (A) 0.2 k/uL (0-0.7); Eosinophils % (A) 3 %; HCT 32.1 % (34.0-46.0); Hypochromasia Marked; Lymphocytes # (A) 1.6 k/uL (1.0-4.8); Lymphocytes % (A) 23 %; MCH 24.6 pg (25.0-35.0); MCHC 29.8 g/dL (31.0-37.0); MCV 82.5 fL (80.0-100.0); Mean Platelet Volume 7.5; Monocytes # (A) 0.4 k/uL (0-1.0); Monocytes % (A) 6 %; Neutrophils # (A) 4.6 k/uL (1.3-7.7); Neutrophils % (A) 65 %; Platelet Count 212 k/uL (150-450); RBC 3.89 m/uL (3.80-5.40); RDW 16.9 % (11.5-15.5); WBC 7.1 k/uL (3.8-10.6)
[2019-10-27 08:19] LABS: ALT 21 U/L (4-34); AST 27 U/L (14-36); African American GFR (CKD) >90 (>60 ml/min/1.73 sqM); Albumin 3.8 g/dL (3.5-5.0); Alkaline Phosphatase 164 U/L (38-126); Anion Gap 6 mmol/L; Blood Urea Nitrogen 6 mg/dL (7-17); Calcium 8.6 mg/dL (8.4-10.2); Carbon Dioxide 29 mmol/L (22-30); Chloride 100 mmol/L (98-107); Glucose 117 mg/dL (74-99); Non-African American GFR(CKD) >90 (>60 ml/min/1.73 sqM); Potassium 4.1 mmol/L (3.5-5.1); Sodium 135 mmol/L (137-145); Total Protein 6.7 g/dL (6.3-8.2)
[2019-10-27 08:27] LABS: HGB 9.6 gm/dL (11.4-16.0)
[2019-10-27] MEDS: INSULIN ASPART (NovoLOG) 100 UNIT/ML VIAL SQ SCH ×2 (08:31→12:53)
[2019-10-27] MEDS: HEPARIN SODIUM,PORCINE 5,000 UNIT/ML 1 ML VIAL SQ SCH (08:42)
[2019-10-27] MEDS: busPIRone HCl 10 MG TAB PO SCH (08:43)
[2019-10-27] MEDS: SUCRALFATE 1 GM TAB PO SCH ×2 (08:43→12:53)
[2019-10-27] MEDS: LITHIUM CARBONATE 300 MG CAP PO SCH (08:43)
[2019-10-27] MEDS: LORATADINE 10 MG TAB PO SCH (08:43)
[2019-10-27] MEDS: LOSARTAN 50 MG TAB PO SCH (08:43)
[2019-10-27] MEDS: PANTOPRAZOLE 40 MG TABLET PO SCH (08:43)
[2019-10-27] MEDS: lamoTRIgine 100 MG TAB PO SCH (08:43)
[2019-10-27] MEDS: BRIMONIDINE TARTRATE 0.2% DROPS 5 ML BTL LEFT EYE SCH (08:44)
[2019-10-27] MEDS: DORZOLAMIDE-TIMOLOL 2.23%/0.68 10ML BTL LEFT EYE SCH (08:44)
[2019-10-27 12:46] LABS: Glucose,Whole Blood 166 mg/dL (75-99)
--- NOTE | 2019-10-27 13:37 | P.DS ---
Providers Date of admission: 10/25/19 22:58 Expected date of discharge: 10/27/19 Attending physician: Chip Knight MD Consults: 10/25/19 22:58 Consult Physician Routine Consulting Provider: Rufino Langford Consult Reason/Comments: known Do you want consulting provider notified?: Yes Primary care physician: Physician Nonsta Hospital Course: Patient is a 44-year-old female with a PMH of type II DM, hypothyroidism, iron deficiency anemia, and hypertension who had presented to the ED with complaints of fever and myalgias. She was admitted on Saturday and received IV iron infusion on Saturday. Patient reported symptoms of fever and myalgias after her iron infusion. She denies any cough. She denies any runny nose. She does complain of myalgias and some fevers. She denies any dysuria or diarrhea. She was admitted to rule out COVID 19, which was negative. Her leukocytosis resolved on October 26. Her hemoglobin down trended from 11.5 on September 24 to 9.6 on October 26. This was thought to be related to dilution. ESR was elevated at 40. Haptoglobin was negative. Iron studies were pending at the time of discharge. Her ferritin was elevated at 633.5. She initially had it elevated total bilirubin and AST which normalized with IV hydration. Her CRP went up from 61.4-180.6. Her pro-calcitonin was mildly elevated at 0.16. Urinalysis showed small leukocyte esterase. Patient was seen and examined. No acute events overnight. Patient reports improvement in her arthralgias. Her last fever was 100.4 Fahrenheit this morning around 4:45 AM. Patient denies any chest pain, shortness of breath or palpitations. No nausea or vomiting. Reports fevers that improved with Tylenol. Requesting to be discharged. General: [non toxic], [no distress], [appears at stated age] Derm: [warm], [dry] Head: [atraumatic], [normocephalic], [symmetric] Eyes: [EOMI], [no lid lag], [anicteric sclera] Mouth: [no lip lesion], [mucus membranes moist] Cardiovascular: [S1S2 reg], [no murmur], [positive posterior tibial pulse bilateral], Lungs: [CTA bilateral], [no rhonchi, no rales] , [no accessory muscle use] Abdominal: [soft], [ nontender to palpation], [no guarding], [no appreciable organomegaly] Ext: [no gross muscle atrophy], [no edema], [no contractures] Neuro: [no focal neuro deficits] Psych: [Alert], [oriented], [appropriate affect] Fever possibly related to infusion of IV iron Anemia normocytic Elevated ESR and CRP Elevated pro-calcitonin Abnormal urinalysis Chronic conditions: Hypothyroidism, hypertension and type 2 diabetes mellitus Resolved: Leukocytosis, elevated total bilirubin and AST Patient had fever of 100.4 Fahrenheit this morning at 4:45 AM. Her fever has considerably decreased since admission without any antibiotics. She did receive her first time dose of IV iron infusion on Saturday. This could explain her fever and arthralgias. Her hemoglobin this morning is 9.6 decreased from 11.5 on admission. This is likely dilutional from IVF that she received. Iron studies are pending and can be followed up in the outpatient setting. Her ferritin, ESR and CRP is elevated which are acute phase reactants possibly related to infusion of IV iron. With regard to her arthralgias, KIP was negative and Rheumatoid factor antibody is pending. Coronavirus testing is negative. Blood cultures are preliminarily negative at 24 hours. She does have small leukocyte esterase on urinalysis but is asymptomatic which does not require any antibiotics. Ideally, I would like to observe her for additional 24 hours for resolution of fever. Patient however would like to go home today and is self-pay. Given her fever of 103.1 F on admission has decreased significantly, I will discharge the patient home today. Patient is advised to come back to the ED for fevers greater than 100.4 Fahrenheit not relieved with Tylenol. She is to follow-up with her PCP within 3 days. Pertinent Studies: Chest x-ray, liver ultrasound Patient Condition at Discharge: Stable Plan - Discharge Summary Discharge Rx Participant: No New Discharge Prescriptions: New Loratadine [Claritin] 10 mg PO DAILY tab Ibuprofen [Motrin] 400 mg PO TID PRN tab PRN Reason: Fever>101 Acetaminophen Tab [Tylenol] 650 mg PO Q4H #30 tab Continue Levothyroxine Sodium [Synthroid] 150 mcg PO DAILY metFORMIN HCL 1,000 mg PO BID clonazePAM [KlonoPIN] 1 mg PO BID PRN PRN Reason: Anxiety lamoTRIgine [LaMICtal] 200 mg PO BID Brimonidine Tartrate [Alphagan P 0.2% Ophth Soln] 1 drop LEFT EYE BID Dorzolamide/Timolol/Pf [Dorzolamide-Timolol 2%-0.5%] 1 drop LEFT EYE BID busPIRone HCL [Buspar] 30 mg PO BID Losartan [Cozaar] 50 mg PO DAILY Latanoprost [Xalatan 0.005%] 1 drop BOTH EYES HS Multivitamins, Thera [Multivitamin (formulary)] 1 tab PO DAILY Biotin 5 mg PO DAILY Pantoprazole Sodium 20 mg PO BID [place] Carbonate 600 mg PO HS [place] Carbonate 300 mg PO DAILY Sucralfate [Carafate] 1 gm PO ACHS Discharge Medication List Levothyroxine Sodium [Synthroid] 150 mcg PO DAILY 02/11/14 [History] metFORMIN HCL 1,000 mg PO BID 04/29/15 [History] clonazePAM [KlonoPIN] 1 mg PO BID PRN 08/24/16 [History] lamoTRIgine [LaMICtal] 200 mg PO BID 08/24/16 [History] Brimonidine Tartrate [Alphagan P 0.2% Ophth Soln] 1 drop LEFT EYE BID 12/10/18 [History] Dorzolamide/Timolol/Pf [Dorzolamide-Timolol 2%-0.5%] 1 drop LEFT EYE BID [History] Latanoprost [Xalatan 0.005%] 1 drop BOTH EYES HS 12/10/18 [History] Losartan [Cozaar] 50 mg PO DAILY 12/10/18 [History] busPIRone HCL [Buspar] 30 mg PO BID 12/10/18 [History] Biotin 5 mg PO DAILY 10/25/19 [History] [place] Carbonate 300 mg PO DAILY 10/25/19 [History] [place] Carbonate 600 mg PO HS 10/25/19 [History] Multivitamins, Thera [Multivitamin (formulary)] 1 tab PO DAILY 10/25/19 [History] Pantoprazole Sodium 20 mg PO BID 10/25/19 [History] Sucralfate [Carafate] 1 gm PO ACHS 10/25/19 [History] Acetaminophen Tab [Tylenol] 650 mg PO Q4H #30 tab 10/27/19 [Rx] Ibuprofen [Motrin] 400 mg PO TID PRN tab 10/27/19 [Rx] Loratadine [Claritin] 10 mg PO DAILY tab 10/27/19 [Rx] Follow up Appointment(s)/Referral(s): Nonstaff,Physician [Primary Care Provider] - 1-2 days Activity/Diet/Wound Care/Special Instructions: Follow-up with PCP within 3 days of discharge. Please monitor your temperature over the next week. Please come back to the ED for worsening fevers greater than 100.4 Fahrenheit that does not get better with Tylenol. Discharge Disposition: HOME SELF-CARE
[2019-10-27 13:47] LABS: % Iron Saturation 8.67 (12.00-45.00); Ferritin 762.9 ng/mL (10.0-291.0)
[2019-10-27 13:54] VITALS: BP 135/74; PULSE 85; RESP 18; TEMP 98.4
== END 2019-10-27 14:10 | disposition home or self-care (01) ==
LOC: EC 21:43 → 4SSUR 22:58 → 6PED 10-27 10:36
PROVIDERS: ADMIT Internal Medicine; ATTEND Internal Medicine
DX: R50.9 Fever, unspecified (principal); D50.9 Iron deficiency anemia, unspecified; R70.0 Elevated erythrocyte sedimentation rate; R79.82 Elevated C-reactive protein (CRP); R79.89 Other specified abnormal findings of blood chemistry; R82.90 Unspecified abnormal findings in urine; M60.9 Myositis, unspecified; E03.9 Hypothyroidism, unspecified; I11.0 Hypertensive heart disease with heart failure; I50.9 Heart failure, unspecified; E11.9 Type 2 diabetes mellitus without complications; D72.829 Elevated white blood cell count, unspecified; E80.6 Other disorders of bilirubin metabolism; R74.0 Nonspecific elevation of levels of transaminase and lactic acid dehydrogenase [LDH]; H46.9 Unspecified optic neuritis; K21.9 Gastro-esophageal reflux disease without esophagitis; K76.0 Fatty (change of) liver, not elsewhere classified; M19.90 Unspecified osteoarthritis, unspecified site; L71.9 Rosacea, unspecified; G47.30 Sleep apnea, unspecified; F41.9 Anxiety disorder, unspecified; F31.9 Bipolar disorder, unspecified; E66.9 Obesity, unspecified; Z68.34 Body mass index [BMI] 34.0-34.9, adult; Z03.818 Encounter for observation for suspected exposure to other biological agents ruled out; Z79.890 Hormone replacement therapy; Z79.84 Long term (current) use of oral hypoglycemic drugs; Z79.899 Other long term (current) drug therapy; Z99.89 Dependence on other enabling machines and devices; Z86.14 Personal history of Methicillin resistant Staphylococcus aureus infection; Z90.49 Acquired absence of other specified parts of digestive tract; Z90.89 Acquired absence of other organs; Z87.442 Personal history of urinary calculi; Z96.0 Presence of urogenital implants; Z98.84 Bariatric surgery status; Z87.891 Personal history of nicotine dependence; Z82.0 Family history of epilepsy and other diseases of the nervous system; Z81.8 Family history of other mental and behavioral disorders; Z83.1 Family history of other infectious and parasitic diseases
CPT/HCPCS: 96376 ×2; 96361 ×2; 96372 ×2; 96374; 96375; 99284; 36415; 93005; 85379; 80053 ×2; 85652; 82728 ×2; 82150; 82550; 82553; 83540; 83550; 83605; 83615 ×2; 83690; 83735; 85025 ×2; 85610; 85730; 86140 ×2; 86431; 81001; 87040; 83010; 86038; 84145; 71045; 76705; G0378 ×4; U0003; J1644 ×2; J1885; J1170 ×3

== ENCOUNTER 2020-12-25 16:14 | Emergency (ER) | payer MEDICARE, OTHER ==
[2020-12-25 16:47] VITALS: RESP 20
--- NOTE | 2020-12-25 17:45 | ED ---
General Adult HPI - General Chief complaint: Nausea/Vomiting/Diarrhea Stated complaint: vomiting, left arm numbness Time Seen by Provider: 12/25/20 17:41 Source: patient Mode of arrival: ambulatory Limitations: no limitations - History of Present Illness Initial comments: Patient presents to the ED with her mother for evaluation. Patient states that she has had nausea and vomiting for the past 4 hours or so. Patient also states that she has been experiencing muscle cramps in her arms and legs. Patient admits to having diarrhea as well, but she states that she has chronic diarrhea, and she denies any change in her bowel movements. Patient states that she got out of rehab for alcohol detox about 2 weeks ago, and she states that she has been sober since then. Patient denies having any of these symptoms until today. Patient denies fever or chills, headache, focal neuro deficit, chest pain or pressure, dyspnea, cough or cold symptoms, palpitations, abdominal pain, bloody or melanotic stool, hematemesis, dysuria or urinary symptoms, or any other symptoms or complaints. - Related Data Home Medications Medication Instructions Recorded Confirmed Levothyroxine Sodium [Synthroid] 150 mcg PO DAILY 02/11/14 12/25/20 clonazePAM [KlonoPIN] 1 mg PO BID PRN 08/24/16 12/25/20 Brimonidine Tartrate [Alphagan P 1 drop BOTH EYES BID 12/10/18 12/25/20 0.2% Ophth Soln] Dorzolamide/Timolol/Pf 1 drop BOTH EYES BID 12/10/18 12/25/20 [Dorzolamide-Timolol 2%-0.5%] Latanoprost [Xalatan 0.005%] 1 drop BOTH EYES HS 12/10/18 12/25/20 [place] Carbonate 900 mg PO HS 10/25/19 12/25/20 Pantoprazole Sodium 20 mg PO BID 10/25/19 12/25/20 Baclofen [Lioresal] 20 mg PO QID PRN 12/25/20 12/25/20 Escitalopram [Lexapro] 10 mg PO HS 12/25/20 12/25/20 [place] Carbonate 150 mg PO HS 12/25/20 12/25/20 Losartan Potassium 50 mg PO DAILY 12/25/20 12/25/20 lamoTRIgine [LaMICtal] 200 mg PO BID 12/25/20 12/25/20 metFORMIN HCL 500 mg PO BID 12/25/20 12/25/20 Allergies Allergy/AdvReac Type Severity Reaction Status Date / Time No Known Allergies Allergy Verified 12/25/20 18:23 Review of Systems ROS Statement: Those systems with pertinent positive or pertinent negative responses have been documented in the HPI. ROS Other: All systems not noted in ROS Statement are negative. Past Medical History Past Medical History: Heart Failure, Diabetes Mellitus, Eye Disorder, GERD/Reflux, Hypertension, Liver Disease, Osteoarthritis (OA), Skin Disorder, Sleep Apnea/CPAP/BIPAP, Thyroid Disorder Additional Past Medical History / Comment(s): Pt has sleep apnea with cpap. Hx heart failure Feb 2014 (patient states he no longer has heart failure-2018). Optic neurititis, left eye, fatty liver, Rosacea on face. History of Any Multi-Drug Resistant Organisms: MRSA Date of last positivie culture/infection: 2013 MDRO Source:: Chin, Nose Past Surgical History: Cholecystectomy, Tonsillectomy Additional Past Surgical History / Comment(s): Kidney stone stent placed left side. States bled out after tonsilectomy at 27 yrs of age and had blood transfusion. gastric sleeve december 2018 Past Anesthesia/Blood Transfusion Reactions: No Reported Reaction Past Psychological History: Anxiety, Bipolar, Depression Smoking Status: Never smoker Past Alcohol Use History: Occasional Past Drug Use History: None Reported - Past Family History Son(s) Family Medical History: Seizure Disorder Mother Family Medical History: No Reported History Additional Family Medical History / Comment(s): MOTHER IS ALIVE AND DOING WELL AT AGE 56, Bipolar Father Family Medical History: No Reported History Additional Family Medical History / Comment(s): Hepatitis General Exam Limitations: no limitations General appearance: alert, in no apparent distress Head exam: Present: atraumatic, normocephalic Eye exam: Present: normal appearance, EOMI ENT exam: Present: mucous membranes moist Neck exam: Present: other (Trachea is in midline) Respiratory exam: Present: normal lung sounds bilaterally. Absent: respiratory distress, wheezes, rales, rhonchi, stridor Cardiovascular Exam: Present: regular rate, normal rhythm, normal heart sounds, other (Normal radial pulses bilaterally) GI/Abdominal exam: Present: soft. Absent: distended, tenderness, guarding Extremities exam: Absent: tenderness, pedal edema, calf tenderness Neurological exam: Present: alert, oriented X3. Absent: motor sensory deficit Psychiatric exam: Present: normal affect, normal mood Skin exam: Present: warm, dry, intact, normal color Course Vital Signs 12/25/20 12/25/20 16:44 19:48 Temperature 98.1 F 97.8 F Pulse Rate 72 67 Respiratory 20 20 Rate Blood Pressure 153/84 172/74 O2 Sat by Pulse 96 98 Oximetry - Reevaluation(s) Reevaluation #1: 12/25/20 19:45 Patient has not had any vomiting while in the ED. Patient states that her nausea has now improved. Patient denies development of any new symptoms while in the ED. Patient's abdomen remains soft and nontender on examination. Patient is aware of her test results, and she feels comfortable going home at this time. Patient was counseled about nausea and vomiting, and she was clearly explained return and follow-up instructions. Patient was instructed to have a low threshold for return to the emergency department should her symptoms worsen. Patient was also instructed to follow up closely with her primary care provider. Patient feels comfortable with this plan. Medical Decision Making - Medical Decision Making Patient has a soft and nontender/nonsurgical abdominal exam. Patient is afebrile and without leukocytosis. Patient has not had any vomiting while in the ED. Patient's symptoms have improved with ED treatment. Patient's labs are fairly unremarkable other than her underlying liver disease. I do not suspect an emergent medical condition at this time. Will discharge patient home at this time. - Lab Data Result diagrams: 12/25/20 18:11 12/25/20 18:11 Lab Results 12/25/20 12/25/20 Range/Units 18:11 18:11 WBC 7.3 (3.8-10.6) k/uL RBC 4.04 (3.80-5.40) m/uL Hgb 12.9 (11.4-16.0) gm/dL Hct 39.6 (34.0-46.0) % MCV 98.0 (80.0-100.0) fL MCH 31.9 (25.0-35.0) pg MCHC 32.6 (31.0-37.0) g/dL RDW 14.3 (11.5-15.5) % Plt Count 222 (150-450) k/uL MPV 7.4 Neutrophils % 65 % Lymphocytes % 22 % Monocytes % 5 % Eosinophils % 6 % Basophils % 1 % Neutrophils # 4.7 (1.3-7.7) k/uL Lymphocytes # 1.6 (1.0-4.8) k/uL Monocytes # 0.3 (0-1.0) k/uL Eosinophils # 0.5 (0-0.7) k/uL Basophils # 0.0 (0-0.2) k/uL Sodium 139 (137-145) mmol/L Potassium 4.4 (3.5-5.1) mmol/L Chloride 105 (98-107) mmol/L Carbon Dioxide 26 (22-30) mmol/L Anion Gap 8 mmol/L BUN 7 (7-17) mg/dL Creatinine 0.47 L (0.52-1.04) mg/dL Est GFR (CKD-EPI)AfAm >90 (>60 ml/min/1.73 sqM) Est GFR (CKD-EPI)NonAf >90 (>60 ml/min/1.73 sqM) Glucose 154 H (74-99) mg/dL Calcium 9.3 (8.4-10.2) mg/dL Total Bilirubin 1.1 (0.2-1.3) mg/dL AST 76 H (14-36) U/L ALT 58 H (4-34) U/L Alkaline Phosphatase 235 H (38-126) U/L Creatine Kinase 79 (30-135) U/L Total Protein 7.6 (6.3-8.2) g/dL Albumin 4.3 (3.5-5.0) g/dL Lipase 56 (23-300) U/L HCG, Qual Not Detected [place] 0.6 mmol/L Disposition Clinical Impression: Nausea and vomiting Disposition: HOME SELF-CARE Condition: Stable Instructions (If sedation given, give patient instructions): Acute Nausea and Vomiting (ED) Additional Instructions: Return to the emergency room immediately should you develop increased or persistent vomiting, new or worsening pain, a fever, feeling dizzy or faint, shortness of breath, or new or worsening symptoms. Follow up closely with your primary care provider. Is patient prescribed a controlled substance at d/c from ED?: No Referrals: Nonstaff,Physician [Primary Care Provider] - 1-2 days Mary Paniagua MD [REFERRING] - 1-2 days Time of Disposition: 19:50
[2020-12-25] MEDS ORDERED: ONDANSETRON 4 MG/2 ML VIAL IVP STA ×2 (17:53→19:33)
[2020-12-25] MEDS ORDERED: SODIUM CHLORIDE 0.9% 1,000 ML IV STA (17:53)
[2020-12-25 18:32] LABS: Basophils % (A) 1 %; Eosinophils # (A) 0.5 k/uL (0-0.7); Eosinophils % (A) 6 %; HCT 39.6 % (34.0-46.0); HGB 12.9 gm/dL (11.4-16.0); Lymphocytes # (A) 1.6 k/uL (1.0-4.8); Lymphocytes % (A) 22 %; MCH 31.9 pg (25.0-35.0); MCHC 32.6 g/dL (31.0-37.0); Mean Platelet Volume 7.4; Monocytes # (A) 0.3 k/uL (0-1.0); Monocytes % (A) 5 %; Neutrophils # (A) 4.7 k/uL (1.3-7.7); Neutrophils % (A) 65 %; Platelet Count 222 k/uL (150-450); RBC 4.04 m/uL (3.80-5.40); RDW 14.3 % (11.5-15.5); WBC 7.3 k/uL (3.8-10.6)
[2020-12-25 18:36] LABS: ALT 58 U/L (4-34); AST 76 U/L (14-36); African American GFR (CKD) >90 (>60 ml/min/1.73 sqM); Albumin 4.3 g/dL (3.5-5.0); Alkaline Phosphatase 235 U/L (38-126); Anion Gap 8 mmol/L; Blood Urea Nitrogen 7 mg/dL (7-17); Calcium 9.3 mg/dL (8.4-10.2); Carbon Dioxide 26 mmol/L (22-30); Chloride 105 mmol/L (98-107); Creatine Kinase 79 U/L (30-135); Glucose 154 mg/dL (74-99); Lipase 56 U/L (23-300); Lithium 0.6 mmol/L; Non-African American GFR(CKD) >90 (>60 ml/min/1.73 sqM); Potassium 4.4 mmol/L (3.5-5.1); Sodium 139 mmol/L (137-145); Total Bilirubin 1.1 mg/dL (0.2-1.3); Total Protein 7.6 g/dL (6.3-8.2)
[2020-12-25 19:05] LABS: HCG,Qualitative Serum Not Detected
[2020-12-25] MEDS ORDERED: ONDANSETRON 4 MG ODT STARTER PACK 2 TAB BTL PO STA (19:49)
[2020-12-25 19:50] VITALS: BP 172/74; PULSE 67; TEMP 97.8
== END 2020-12-25 20:07 | disposition home or self-care (01) ==
LOC: EC 16:14
DX: R11.2 Nausea with vomiting, unspecified (principal); R19.7 Diarrhea, unspecified; R20.0 Anesthesia of skin; R25.2 Cramp and spasm; E11.9 Type 2 diabetes mellitus without complications; I11.0 Hypertensive heart disease with heart failure; I50.9 Heart failure, unspecified; E07.9 Disorder of thyroid, unspecified; K21.9 Gastro-esophageal reflux disease without esophagitis; Z79.899 Other long term (current) drug therapy; Z79.84 Long term (current) use of oral hypoglycemic drugs; Z79.890 Hormone replacement therapy
CPT/HCPCS: 36415; 80053; 82550; 83690; 80178; 85025; 84703; 99284; 96374; 96376; 96361; J2405; S0119

== ENCOUNTER 2021-08-31 04:54 | Inpatient (IN) | payer MEDICARE, MEDICAID ==
[2021-08-31 06:44] LABS: Appearance,Urine Turbid (Clear); Bacteria,Urine Rare /hpf; Bilirubin,Urine Negative (Negative); Blood,Urine Negative (Negative); Color,Urine Yellow; Glucose,Urine (UA) Negative (Negative); Hyaline Casts,Urine 5 /lpf (0-2); Ketones,Urine Negative (Negative); Leukocyte Esterase,Urine Large (Negative); Mucus,Urine Occasional /hpf; Nitrite,Urine Negative (Negative); PH, Urine 5.5 (5.0-8.0); Protein,Urine 1+ (Negative); RBC,Urine 3 /hpf (0-5); Specific Gravity,Urine 1.025 (1.001-1.035); Squamous Epithelial Cell,Urine 53 /hpf (0-4); Urobilinogen,Urine <2.0 mg/dL (<2.0); WBC,Urine 69 /hpf (0-5)
[2021-08-31 06:50] LABS: Amphetamine Screen,Urine Not Detected (NotDetected); Barbiturate Screen,Urine Not Detected (NotDetected); Benzodiazepines Screen,Urine Not Detected (NotDetected); Cocaine Screen,Urine Not Detected (NotDetected); Methadone Screen, Urine Not Detected (NotDetected); Opiate Screen,Urine Not Detected (NotDetected); Oxycodone Screen, Urine Not Detected (NotDetected); Phencyclidine Screen,Urine Not Detected (NotDetected); Tricyclic Antidepressant,Urine Detected (NotDetected); Urn Cannabinoid Scrn Detected (NotDetected)
--- NOTE | 2021-08-31 07:33 | ED ---
Psych HPI <Saul Avilez - Last Filed: 08/31/21 16:10> - General Source: patient, RN notes reviewed Mode of arrival: ambulatory Limitations: no limitations <Victoriano Portillo - Last Filed: 09/01/21 06:09> - General Chief Complaint: Psychiatric Symptoms Stated Complaint: Mental Health Time Seen by Provider: 08/31/21 06:04 - History of Present Illness Initial Comments: This is a 45-year-old female presents emergency Department chief complaint of needing psychiatric help. Patient states she has not slept in days. Patient states that she has been off her medications. She is very anxious she attempts to take multiple pills last night to sleep. Patient had suicidal ideation. Patient's states that she needs help. Patient denies any drug use. Possible occasional alcohol use. Patient has no physical complaints. (Victoriano Portillo) - Related Data Home Medications Medication Instructions Recorded Confirmed Levothyroxine Sodium [Synthroid] 150 mcg PO DAILY 02/11/14 08/31/21 Brimonidine Tartrate [Alphagan P 1 drop BOTH EYES BID 12/10/18 08/31/21 0.2% Ophth Soln] Dorzolamide/Timolol/Pf 1 drop BOTH EYES BID 12/10/18 08/31/21 [Dorzolamide-Timolol 2%-0.5%] Latanoprost [Xalatan 0.005%] 1 drop BOTH EYES HS 12/10/18 08/31/21 [place] Carbonate 300 mg PO BID 10/25/19 08/31/21 Pantoprazole Sodium 20 mg PO BID 10/25/19 08/31/21 Baclofen [Lioresal] 20 mg PO QID PRN 12/25/20 08/31/21 Losartan Potassium 50 mg PO DAILY 12/25/20 08/31/21 Pregabalin [Lyrica] 25 mg PO BID 08/31/21 08/31/21 QUEtiapine FUMARATE [SEROquel] 450 mg PO HS 08/31/21 08/31/21 Ramelteon [Rozerem] 8 mg PO HS 08/31/21 08/31/21 busPIRone HCL [Buspar] 30 mg PO BID 08/31/21 08/31/21 metFORMIN HCL [Glucophage] 1,000 mg PO BID 08/31/21 08/31/21 traMADol HCl [Ultram] 50 mg PO TID PRN 08/31/21 08/31/21 Allergies Allergy/AdvReac Type Severity Reaction Status Date / Time No Known Allergies Allergy Verified 08/31/21 12:59 Review of Systems ROS Other: All systems not noted in ROS Statement are negative. <Saul Avilez Jatinder - Last Filed: 08/31/21 16:10> ROS Other: All systems not noted in ROS Statement are negative. <Victoriano Portillo - Last Filed: 09/01/21 06:09> ROS Statement: Those systems with pertinent positive or pertinent negative responses have been documented in the HPI. Past Medical History Past Medical History: Heart Failure, Diabetes Mellitus, Eye Disorder, GERD/Reflux, Hypertension, Liver Disease, Osteoarthritis (OA), Skin Disorder, Sleep Apnea/CPAP/BIPAP, Thyroid Disorder Additional Past Medical History / Comment(s): Pt has sleep apnea with cpap. Hx heart failure Feb 2014 (patient states he no longer has heart failure-2018). Optic neurititis, left eye, fatty liver, Rosacea on face. History of Any Multi-Drug Resistant Organisms: MRSA Date of last positivie culture/infection: 2013 MDRO Source:: Chin, Nose Past Surgical History: Cholecystectomy, Tonsillectomy Additional Past Surgical History / Comment(s): Kidney stone stent placed left side. States bled out after tonsilectomy at 27 yrs of age and had blood transfusion. gastric sleeve december 2018 Past Anesthesia/Blood Transfusion Reactions: No Reported Reaction Past Psychological History: Anxiety, Bipolar, Depression, Schizoaffective Disorder Smoking Status: Never smoker Past Alcohol Use History: Occasional Past Drug Use History: None Reported - Past Family History Son(s) Family Medical History: Seizure Disorder Mother Family Medical History: No Reported History Additional Family Medical History / Comment(s): MOTHER IS ALIVE AND DOING WELL AT AGE 56, Bipolar Father Family Medical History: No Reported History Additional Family Medical History / Comment(s): Hepatitis <Victoriano Portillo - Last Filed: 09/01/21 06:09> General Exam Limitations: no limitations General appearance: alert, in no apparent distress Head exam: Present: atraumatic, normocephalic, normal inspection Eye exam: Present: normal appearance, PERRL, EOMI. Absent: scleral icterus, conjunctival injection, periorbital swelling ENT exam: Present: normal exam, normal oropharynx, mucous membranes moist Neck exam: Present: normal inspection, full ROM. Absent: tenderness, meningismus, lymphadenopathy Respiratory exam: Present: normal lung sounds bilaterally. Absent: respiratory distress, wheezes, rales, rhonchi, stridor Cardiovascular Exam: Present: normal rhythm, tachycardia, normal heart sounds. Absent: systolic murmur, diastolic murmur, rubs, gallop, clicks Neurological exam: Present: alert, oriented X3 Psychiatric exam: Present: anxious <Victoriano Portillo - Last Filed: 09/01/21 06:09> Course Vital Signs 08/31/21 08/31/21 05:30 18:00 Temperature 97.6 F 98.2 F Pulse Rate 120 H 96 Respiratory 18 18 Rate Blood Pressure 136/84 134/89 O2 Sat by Pulse 98 97 Oximetry Medical Decision Making - Lab Data Result diagrams: 08/31/21 14:27 08/31/21 14:27 <Saul Avilez - Last Filed: 08/31/21 16:10> - Lab Data Result diagrams: 08/31/21 14:27 08/31/21 14:27 <Victoriano Portillo - Last Filed: 09/01/21 06:09> - Medical Decision Making Patient had been petitioned for psychiatric evaluation. There has been some suicidal ideation as well as hallucination. [place] and [place]. After she had been petitioned I was requested to complete a clinical certification. I did evaluate the patient and filled out a clinical certification for her psychiatric admission. (Saul Avilez) - Lab Data Lab Results 08/31/21 08/31/21 08/31/21 Range/Units 05:52 14:27 14:27 WBC 9.8 (3.8-10.6) k/uL RBC 4.36 (3.80-5.40) m/uL Hgb 11.7 (11.4-16.0) gm/dL Hct 37.4 (34.0-46.0) % MCV 85.8 (80.0-100.0) fL MCH 26.9 (25.0-35.0) pg MCHC 31.4 (31.0-37.0) g/dL RDW 15.4 (11.5-15.5) % Plt Count 319 (150-450) k/uL MPV 7.6 Neutrophils % 66 % Lymphocytes % 25 % Monocytes % 4 % Eosinophils % 2 % Basophils % 1 % Neutrophils # 6.5 (1.3-7.7) k/uL Lymphocytes # 2.5 (1.0-4.8) k/uL Monocytes # 0.4 (0-1.0) k/uL Eosinophils # 0.2 (0-0.7) k/uL Basophils # 0.1 (0-0.2) k/uL Sodium 135 L (137-145) mmol/L Potassium 3.8 (3.5-5.1) mmol/L Chloride 99 (98-107) mmol/L Carbon Dioxide 28 (22-30) mmol/L Anion Gap 8 mmol/L BUN 12 (7-17) mg/dL Creatinine 0.82 (0.52-1.04) mg/dL Est GFR (CKD-EPI)AfAm >90 (>60 ml/min/1.73 sqM) Est GFR (CKD-EPI)NonAf 87 (>60 ml/min/1.73 sqM) Glucose 131 H (74-99) mg/dL Calcium 9.0 (8.4-10.2) mg/dL Total Bilirubin 0.7 (0.2-1.3) mg/dL AST 20 (14-36) U/L ALT 18 (4-34) U/L Alkaline Phosphatase 117 (38-126) U/L Total Protein 7.3 (6.3-8.2) g/dL Albumin 4.3 (3.5-5.0) g/dL Urine Color Yellow Urine Appearance Turbid H (Clear) Urine pH 5.5 (5.0-8.0) Ur Specific [place] 1.025 (1.001-1.035) Urine Protein 1+ H (Negative) Urine Glucose (UA) Negative (Negative) Urine Ketones Negative (Negative) Urine Blood Negative (Negative) Urine Nitrite Negative (Negative) Urine Bilirubin Negative (Negative) Urine Urobilinogen <2.0 (<2.0) mg/dL Ur Leukocyte Esterase Large H (Negative) Urine RBC 3 (0-5) /hpf Urine WBC 69 H (0-5) /hpf Ur Squamous Epith Cells 53 H (0-4) /hpf Urine Bacteria Rare H (None) /hpf Hyaline Casts 5 H (0-2) /lpf Urine Mucus Occasional H (None) /hpf Urine HCG, Qual (Not Detectd) Urine Opiates Screen Not Detected (NotDetected) Ur Oxycodone Screen Not Detected (NotDetected) Urine Methadone Screen Not Detected (NotDetected) Ur Propoxyphene Screen Not Detected (NotDetected) Ur Barbiturates Screen Not Detected (NotDetected) U Tricyclic Antidepress Detected H (NotDetected) Ur Phencyclidine Scrn Not Detected (NotDetected) Ur Amphetamines Screen Not Detected (NotDetected) U Methamphetamines Scrn Not Detected (NotDetected) U Benzodiazepines Scrn Not Detected (NotDetected) Urine Cocaine Screen Not Detected (NotDetected) U Marijuana (THC) Screen Detected H (NotDetected) Coronavirus (PCR) (Not Detectd) 08/31/21 08/31/21 Range/Units 14:27 16:10 WBC (3.8-10.6) k/uL RBC (3.80-5.40) m/uL Hgb (11.4-16.0) gm/dL Hct (34.0-46.0) % MCV (80.0-100.0) fL MCH (25.0-35.0) pg MCHC (31.0-37.0) g/dL RDW (11.5-15.5) % Plt Count (150-450) k/uL MPV Neutrophils % % Lymphocytes % % Monocytes % % Eosinophils % % Basophils % % Neutrophils # (1.3-7.7) k/uL Lymphocytes # (1.0-4.8) k/uL Monocytes # (0-1.0) k/uL Eosinophils # (0-0.7) k/uL Basophils # (0-0.2) k/uL Sodium (137-145) mmol/L Potassium (3.5-5.1) mmol/L Chloride (98-107) mmol/L Carbon Dioxide (22-30) mmol/L Anion Gap mmol/L BUN (7-17) mg/dL Creatinine (0.52-1.04) mg/dL Est GFR (CKD-EPI)AfAm (>60 ml/min/1.73 sqM) Est GFR (CKD-EPI)NonAf (>60 ml/min/1.73 sqM) Glucose (74-99) mg/dL Calcium (8.4-10.2) mg/dL Total Bilirubin (0.2-1.3) mg/dL AST (14-36) U/L ALT (4-34) U/L Alkaline Phosphatase (38-126) U/L Total Protein (6.3-8.2) g/dL Albumin (3.5-5.0) g/dL Urine Color Urine Appearance (Clear) Urine pH (5.0-8.0) Ur Specific [place] (1.001-1.035) Urine Protein (Negative) Urine Glucose (UA) (Negative) Urine Ketones (Negative) Urine Blood (Negative) Urine Nitrite (Negative) Urine Bilirubin (Negative) Urine Urobilinogen (<2.0) mg/dL Ur Leukocyte Esterase (Negative) Urine RBC (0-5) /hpf Urine WBC (0-5) /hpf Ur Squamous Epith Cells (0-4) /hpf Urine Bacteria (None) /hpf Hyaline Casts (0-2) /lpf Urine Mucus (None) /hpf Urine HCG, Qual Not Detected (Not Detectd) Urine Opiates Screen (NotDetected) Ur Oxycodone Screen (NotDetected) Urine Methadone Screen (NotDetected) Ur Propoxyphene Screen (NotDetected) Ur Barbiturates Screen (NotDetected) U Tricyclic Antidepress (NotDetected) Ur Phencyclidine Scrn (NotDetected) Ur Amphetamines Screen (NotDetected) U Methamphetamines Scrn (NotDetected) U Benzodiazepines Scrn (NotDetected) Urine Cocaine Screen (NotDetected) U Marijuana (THC) Screen (NotDetected) Coronavirus (PCR) Not Detected (Not Detectd) Disposition <Saul Avilez N - Last Filed: 08/31/21 16:10> <Victoriano Portillo - Last Filed: 09/01/21 06:09> Clinical Impression: Depression, Bipolar disorder Disposition: TRANSFER TO PSYCH HOSP/UNIT Condition: Stable Referrals: Nonstaff,Physician [Primary Care Provider] - 1-2 days
[2021-08-31] MEDS ORDERED: LORazepam 2 MG/ML INJ IM STA ×2 (11:10→18:32)
[2021-08-31] MEDS ORDERED: diazePAM 5 MG TAB PO STA ×2 (14:37→16:15)
[2021-08-31 14:46] LABS: Basophils # (A) 0.1 k/uL (0-0.2); Basophils % (A) 1 %; Eosinophils # (A) 0.2 k/uL (0-0.7); Eosinophils % (A) 2 %; HCT 37.4 % (34.0-46.0); HGB 11.7 gm/dL (11.4-16.0); Lymphocytes # (A) 2.5 k/uL (1.0-4.8); Lymphocytes % (A) 25 %; MCH 26.9 pg (25.0-35.0); MCHC 31.4 g/dL (31.0-37.0); MCV 85.8 fL (80.0-100.0); Mean Platelet Volume 7.6; Monocytes # (A) 0.4 k/uL (0-1.0); Monocytes % (A) 4 %; Neutrophils # (A) 6.5 k/uL (1.3-7.7); Neutrophils % (A) 66 %; Platelet Count 319 k/uL (150-450); RBC 4.36 m/uL (3.80-5.40); RDW 15.4 % (11.5-15.5); WBC 9.8 k/uL (3.8-10.6)
[2021-08-31 14:58] LABS: Anion Gap 8 mmol/L; Blood Urea Nitrogen 12 mg/dL (7-17); Carbon Dioxide 28 mmol/L (22-30); Chloride 99 mmol/L (98-107); Glucose 131 mg/dL (74-99); Potassium 3.8 mmol/L (3.5-5.1); Sodium 135 mmol/L (137-145)
[2021-08-31 14:59] LABS: ALT 18 U/L (4-34); AST 20 U/L (14-36); African American GFR (CKD) >90 (>60 ml/min/1.73 sqM); Albumin 4.3 g/dL (3.5-5.0); Alkaline Phosphatase 117 U/L (38-126); Non-African American GFR(CKD) 87 (>60 ml/min/1.73 sqM); Total Bilirubin 0.7 mg/dL (0.2-1.3); Total Protein 7.3 g/dL (6.3-8.2)
[2021-08-31] MEDS: QUEtiapine 400 MG TAB PO STA ×2 (22:35→22:39)
[2021-08-31] MEDS ORDERED: HALOPERIDOL LACTATE 5 MG/ML 1 ML VIAL IM STA (22:39)
[2021-09-01] MEDS ORDERED: ZIPRASIDONE 20 MG VIAL IM STA (03:10)
[2021-09-01] MEDS: LOSARTAN 50 MG TAB PO SCH (08:34)
[2021-09-01] MEDS: busPIRone HCl 10 MG TAB PO SCH ×2 (08:34→20:06)
[2021-09-01] MEDS: LEVOTHYROXINE 75 MCG TAB PO SCH (08:34)
[2021-09-01] MEDS: metFORMIN 500 MG TAB PO SCH ×2 (08:35→16:44)
[2021-09-01] MEDS: DORZOLAMIDE-TIMOLOL 2.23%/0.68 10ML BTL BOTH EYES SCH ×3 (08:35→21:58)
[2021-09-01] MEDS: LITHIUM CARBONATE 300 MG CAP PO SCH ×2 (08:35→22:14)
[2021-09-01] MEDS: PANTOPRAZOLE 40 MG TABLET PO SCH ×2 (08:35→16:44)
[2021-09-01] MEDS: PREGABALIN 25 MG CAP PO SCH ×2 (08:35→20:06)
[2021-09-01] MEDS ORDERED: LORazepam 1 MG TAB PO STA ×3 (11:08→21:54)
[2021-09-01] MEDS: QUEtiapine 50 MG TAB PO SCH (20:06)
[2021-09-01] MEDS ORDERED: TEMAZEPAM 15 MG CAP PO PRN (21:00)
[2021-09-01] MEDS: LATANOPROST 0.005% OPHTH DROPS 2.5 ML BTL BOTH EYES SCH (22:00)
[2021-09-01] MEDS: QUEtiapine 400 MG TAB PO SCH (22:14)
[2021-09-02] MEDS ORDERED: TEMAZEPAM 7.5 MG CAP PO PRN (03:10)
[2021-09-02] MEDS: PANTOPRAZOLE 40 MG TABLET PO SCH ×2 (07:02→20:04)
[2021-09-02] MEDS: metFORMIN 500 MG TAB PO SCH ×2 (07:03→20:00)
[2021-09-02] MEDS: LEVOTHYROXINE 75 MCG TAB PO SCH (07:03)
[2021-09-02] MEDS: busPIRone HCl 10 MG TAB PO SCH ×2 (08:52→20:00)
[2021-09-02] MEDS: LOSARTAN 50 MG TAB PO SCH (08:52)
[2021-09-02] MEDS: PREGABALIN 25 MG CAP PO SCH ×2 (08:52→20:00)
[2021-09-02] MEDS: LITHIUM CARBONATE 300 MG CAP PO SCH ×2 (08:53→20:00)
[2021-09-02] MEDS: LORazepam 1 MG TAB PO SCH ×2 (08:56→20:04)
[2021-09-02] MEDS ORDERED: LORazepam 1 MG TAB PO STA (12:37)
[2021-09-02] MEDS: DORZOLAMIDE-TIMOLOL 2.23%/0.68 10ML BTL BOTH EYES SCH (20:00)
[2021-09-02] MEDS: LATANOPROST 0.005% OPHTH DROPS 2.5 ML BTL BOTH EYES SCH (20:10)
[2021-09-02] MEDS: QUEtiapine 400 MG TAB PO SCH (20:11)
[2021-09-02] MEDS: QUEtiapine 50 MG TAB PO SCH (20:13)
[2021-09-03] MEDS: metFORMIN 500 MG TAB PO SCH ×2 (08:26→17:06)
[2021-09-03] MEDS: LOSARTAN 50 MG TAB PO SCH (08:26)
[2021-09-03] MEDS: PANTOPRAZOLE 40 MG TABLET PO SCH ×2 (08:26→17:06)
[2021-09-03] MEDS: LEVOTHYROXINE 75 MCG TAB PO SCH (08:26)
[2021-09-03] MEDS: PREGABALIN 25 MG CAP PO SCH ×2 (08:29→20:25)
[2021-09-03] MEDS: DORZOLAMIDE-TIMOLOL 2.23%/0.68 10ML BTL BOTH EYES SCH ×2 (11:57→20:25)
[2021-09-03] MEDS: LORazepam 1 MG TAB PO SCH ×2 (11:57→20:25)
[2021-09-03] MEDS: busPIRone HCl 10 MG TAB PO SCH ×2 (11:57→20:25)
[2021-09-03] MEDS: LITHIUM CARBONATE 300 MG CAP PO SCH ×2 (12:13→20:25)
[2021-09-03] MEDS ORDERED: ACETAMINOPHEN TAB 325 MG TAB PO STA (20:17)
[2021-09-03] MEDS: LATANOPROST 0.005% OPHTH DROPS 2.5 ML BTL BOTH EYES SCH (20:26)
[2021-09-03] MEDS: QUEtiapine 50 MG TAB PO SCH (20:29)
[2021-09-03] MEDS: QUEtiapine 400 MG TAB PO SCH (20:29)
[2021-09-04] MEDS: LEVOTHYROXINE 75 MCG TAB PO SCH (08:12)
[2021-09-04] MEDS: LOSARTAN 50 MG TAB PO SCH (08:13)
[2021-09-04] MEDS: PANTOPRAZOLE 40 MG TABLET PO SCH ×2 (08:13→21:09)
[2021-09-04] MEDS: LITHIUM CARBONATE 300 MG CAP PO SCH ×2 (08:13→21:10)
[2021-09-04] MEDS: LORazepam 1 MG TAB PO SCH ×2 (08:13→21:16)
[2021-09-04] MEDS: PREGABALIN 25 MG CAP PO SCH ×2 (08:13→21:09)
[2021-09-04] MEDS: busPIRone HCl 10 MG TAB PO SCH ×2 (08:13→21:09)
[2021-09-04] MEDS: metFORMIN 500 MG TAB PO SCH ×2 (08:13→21:09)
[2021-09-04] MEDS: DORZOLAMIDE-TIMOLOL 2.23%/0.68 10ML BTL BOTH EYES SCH ×2 (08:13→21:12)
[2021-09-04 08:20] VITALS: RESP 16
[2021-09-04] MEDS: LATANOPROST 0.005% OPHTH DROPS 2.5 ML BTL BOTH EYES SCH (21:08)
[2021-09-04] MEDS: QUEtiapine 400 MG TAB PO SCH (21:15)
[2021-09-04] MEDS: QUEtiapine 50 MG TAB PO SCH (21:16)
[2021-09-04] MEDS ORDERED: MAGNESIUM HYDROXIDE 2,400 MG/10 ML CUP PO PRN (22:38)
[2021-09-04] MEDS ORDERED: MAG HYDROX/AL HYDROX/SIMETH 30 ML CUP PO PRN (22:38)
[2021-09-04] MEDS ORDERED: LORazepam 1 MG TAB PO PRN (22:38)
[2021-09-04] MEDS ORDERED: LORazepam 2 MG/ML INJ IM PRN (22:42)
[2021-09-05] MEDS: traMADol 50 MG TAB PO PRN ×2 (02:58→21:07)
[2021-09-05] MEDS: LEVOTHYROXINE 75 MCG TAB PO SCH (06:41)
[2021-09-05 07:21] VITALS: TEMP 97.4
[2021-09-05] MEDS: DORZOLAMIDE-TIMOLOL 2.23%/0.68 10ML BTL BOTH EYES SCH ×2 (08:06→21:04)
[2021-09-05] MEDS: BRIMONIDINE TARTRATE 0.2% DROPS 5 ML BTL BOTH EYES SCH ×2 (08:07→21:03)
[2021-09-05] MEDS: LORazepam 1 MG TAB PO SCH ×3 (08:09→21:03)
[2021-09-05] MEDS: LOSARTAN 50 MG TAB PO SCH (08:09)
[2021-09-05] MEDS: PANTOPRAZOLE 40 MG TABLET PO SCH ×2 (08:10→16:05)
[2021-09-05] MEDS: metFORMIN 500 MG TAB PO SCH ×2 (08:10→16:05)
[2021-09-05] MEDS: busPIRone HCl 10 MG TAB PO SCH ×2 (08:10→21:03)
[2021-09-05] MEDS: LITHIUM CARBONATE 300 MG CAP PO SCH ×2 (08:10→21:02)
[2021-09-05] MEDS: PREGABALIN 25 MG CAP PO SCH (08:13)
[2021-09-05 10:48] LABS: Chol/HDL Ratio 2.81 Ratio; LDL Cholesterol,Calculated 68.4 mg/dL (0.0-131.0)
[2021-09-05] MEDS: ESCITALOPRAM 5 MG TAB PO SCH (11:06)
--- NOTE | 2021-09-05 13:40 | P.HP ---
Psychiatric H&P - . H&P Date: 09/05/21 History & Physical: IDENTIFYING DATA: She is a 45-year-old single female admitted to psychiatric unit voluntarily for complaints of insomnia, restlessness, increasing confusion, homicidal ideation and auditory and visual hallucinations. HISTORY OF PRESENT ILLNESS: She has a long history of emotional problems beginning in early 20s. She dates the onset of her current difficulties to relapse with alcohol in February 2021. She stated that she began drinking and her alcohol use increased where she was sitting up to one fifth of liquor daily. In March 2021 she overdose on prescription clonazepam. She alleges that she does not remember taking the overdose because it occurred during a "blackout." She was admitted to the ICU at [facility] for 5 days then transferred to [facility] for inpatient psychiatric treatment. After discharge her outpatient psychiatrist refused to continue Klonopin. She described worsening problems with anxiety and insomnia even though her outpatient psychiatrist prescribed several alternatives to a benzodiazepine. None of the alternatives, including buspirone and lyrica, provided little relief of the anxiety, anxiety symptoms or insomnia. She complained that she had not slept for "several weeks" prior to admission, became increasing irritable, confused and developed auditory and visual hallucinations. However, her description of the experiences best be characterized as misperceptions rather than true hallucinatory experiences (seeing flashes of light, thinking that she heard people talking). The apparent "final straw" was becoming enraged that thoughts of harming her mother's dog. She talked about how frightening and distressing the thought of hurting this animal was to her. She became increasingly frustrated with outpatient psychiatrist. He apparently told her that he is a she has a borderline personality disorder and recommended dialectic behavioral therapy. She complained that she completed a DBT program already and has been using the skills to manage her emotional distress. She denied use of alcohol since the overdose in March 2021. She denied use of other drugs to treat opioid pain medications. She described feelings of hopelessness, helplessness and worthlessness. However she denied that she had been experiencing suicidal ideation and wishes. She described increasing irritability but denied having periods of elevated mood. She denied ideas of reference, thought insertion, thought broadcasting etc. suggestive of psychotic disorder. PAST PSYCHIATRIC HISTORY: She first received mental health services when she was in her 20s. She estimates that she is had 5 or 6 admissions to either inpatient or day psychiatric programs. As mentioned above, her last psychiatric admission was in March 2021 at [facility]. She was discharged with a combination of olanzapine and Prozac. She said that she's been treated with benzodiazepine for close to 20 years. She denied that she has never abused the benzodiazepine in the past. She currently meets with a psychiatrist on a biweekly basis and with individual therapist weekly. She denied prior suicide attempts has had admissions for suicidal thoughts. She has been prescribed most available antidepressant medication which exception of chart classic antidepressants. PAST MEDICAL HISTORY: She has a complicated medical history. According to record she has history of heart failure, diabetes mellitus, eye disorder, hypertension, liver disease, osteoarthritis, sleep apnea and thyroid disease. ALLERGIES: NO KNOWN DRUG ALLERGIES SUBSTANCE USE HISTORY: She developed a dependence on opioid pain medications approximately 10 years ago when they're prescribed for the treatment of chronic back pain. She stopped using opiates without medical intervention. She stated that she normally drinks alcohol once a week has not used alcohol since the overdose in March 2021. She is never been in a substance abuse treatment program. FAMILY PSYCHIATRIC/SUBSTANCE USE HISTORY: She has strong family history of mental health and substance use problems. Her mother had a history of bipolar disorder. She attempted suicide and was admitted to a psychiatric facility when the patient was 14 years old. A cousin by suicide. Her grandmother was lived in a psychiatric facility for many years. Her father had a history of opiate use disorder and from a fentanyl overdose. LEGAL HISTORY: She denied SOCIAL HISTORY: She was born and raised in an intact family. Her parents when she was 14 years old. She was an only child. She graduated from high school and earned a bachelor's degree in nursing. 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 She had one child out of wedlock. She opted for a medical fpc due to multiple medical problems. She lives with her mother and her 10-year-old son. MENTAL STATUS EXAM: She presented as a disheveled appearing 45-year-old female who is moderately obese. She made eye contact and attended to the interview. She had no distinguishing features or prominent physical abnormalities. She had a distressed facial expression. She was alert and oriented to person, place and time. She showed no abnormality of psychomotor activity. Her gait was slow but steady. Her speech was spontaneous and consistent with her affect. She was depressed and anxious. She cried intermittently during the interview. She denied current suicidal ideation or wishes. She denied current homicidal ideation. She expressed feelings of hopelessness, helplessness and worthlessness. She ruminated and obsessed about the difficulty she is experiencing since since her overdose and the unwillingness of her providers to prescribe her benzodiazepines. She did not express ideas reference, paranoid ideation, magical ideation or delusions. Her thinking was abstract and associations were coherent, organized and goal directed. She did not appear to be responding to internal stimuli. Global im pression was average to above. She is aware of her illness and need for treatment. STRENGTHS: Stable income, stable housing, supportive family, history of sustained employment, engagement with mental health treatment WEAKNESSES: Multiple medical problems, benzodiazepine dependence, chronic problems with depression and anxiety IMPRESSION: She is a 45-year-old single female with long history of mental health problems beginning in early adulthood. She presented with complaints of increasing anxiety, depression and insomnia that has impaired her ability to function, concentrate or attend to activities of daily living. These symptoms worsened since her outpatient psychiatrist refused to prescribe her a benzodiazepine because she had overdosed on benzodiazepines when she was into xicated. She alleged that she found little relief with all of the alternatives that the psychiatrists as provided further management of the symptoms. She should be treated inpatient basis with a combination of psychopharmacology and multimodal therapy. 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 RECOMMENDATION: Admit to the psychiatric unit voluntarily. Safety precautions. Consult medicine for initial physical exam and medical history. radio survey worker to complete the initial psychosocial assessment and coordinate discharge and aftercare services. Note that patient does not wish to return to her prior psychiatrist and would like a referral to [facility]. Discontinue Seroquel and Lyrica. Continue BuSpar 30 mg twice a day and lithium 300 mg twice a day. Begin Lexapro 5 mg daily and titrated according to clinical response and tolerance. Ativan 1 mg by mouth twice a day. Obtain serum lithium level. Ativan 1 mg every 6 hours when necessary IM for anxiety, agitation acute ps ychosis. Allergies Allergy/AdvReac Type Severity Reaction Status Date / Time No Known Allergies Allergy Verified 08/31/21 12:59 Vital Signs Temp 97.4 F L 09/05/21 07:21 Pulse 76 09/05/21 07:21 Resp 16 09/04/21 23:47 BP 125/59 09/05/21 07:21 Pulse Ox 99 09/05/21 07:21 FiO2 Intake & Output 09/04/21 09/05/21 09/05/21 18:59 06:59 18:59 Weight 98.43 kg Laboratory Last Values WBC 9.8 k/uL (3.8-10.6) 08/31/21 14: RBC 4.36 m/uL (3.80-5.40) 08/31/21 14:27 Hgb 11.7 gm/dL (11.4-16.0) 08/31/21 14:27 Hct 37.4 % (34.0-46.0) 08/31/21 14:27 MCV 85.8 fL (80.0-100.0) 08/31/21 14:27 MCH 26.9 pg (25.0-35.0) 08/31/21 14:27 MCHC 31.4 g/dL (31.0-37.0) 08/31/21 14:27 RDW 15.4 % (11.5-15.5) 08/31/21 14:27 Plt Count 319 k/uL (150-450) 08/31/21 14:27 MPV 7.6 08/31/21 14:27 Neutrophils % 66 % 08/31/21 14:27 Lymphocytes % 25 % 08/31/21 14:27 Monocytes % 4 % 08/31/21 14:27 Eosinophils % 2 % 08/31/21 14:27 Basophils % 1 % 08/31/21 14:27 Neutrophils # 6.5 k/uL (1.3-7.7) 08/31/21 14:27 Lymphocytes # 2.5 k/uL (1.0-4.8) 08/31/21 14:27 Monocytes # 0.4 k/uL (0-1.0) 08/31/21 14:27 Eosinophils # 0.2 k/uL (0-0.7) 08/31/21 14:27 Basophils # 0.1 k/uL (0-0.2) 08/31/21 14:27 Sodium 135 mmol/L (137-145) L 08/31/21 14:27 Potassium 3.8 mmol/L (3.5-5.1) 08/31/21 14:27 Chloride 99 mmol/L (98-107) 08/31/21 14:27 Carbon Dioxide 28 mmol/L (22-30) 08/31/21 14:27 Anion Gap 8 mmol/L 08/31/21 14:27 BUN 12 mg/dL (7-17) 08/31/21 14:27 Creatinine 0.82 mg/dL (0.52-1.04) 08/31/21 14:27 Est GFR (CKD-EPI)AfAm >90 (>60 ml/min/1.73 sqM) 08/31/21 14:27 Est GFR (CKD-EPI)NonAf 87 (>60 ml/min/1.73 sqM) 08/31/21 14:27 Glucose 131 mg/dL (74-99) H 08/31/21 14:[address] Glu mg/dL 136 09/05/21 07:09 Hemoglobin A1c 6.4 % (0.0-6.0) H 09/05/21 07:09 Calcium 9.0 mg/dL (8.4-10.2) 08/31/21 14:27 Total Bilirubin 0.7 mg/dL (0.2-1.3) 08/31/21 14:27 AST 20 U/L (14-36) 08/31/21 14:27 ALT 18 U/L (4-34) 08/31/21 14:27 Alkaline Phosphatase 117 U/L (38-126) 08/31/21 14:27 Total Protein 7.3 g/dL (6.3-8.2) 08/31/21 14:27 Albumin 4.3 g/dL (3.5-5.0) 08/31/21 14:27 Triglycerides 144.00 mg/dL (0.00-149.00) 09/05/21 07:09 Cholesterol 151.00 mg/dL (0.00-200.00) 09/05/21 07:09 LDL Cholesterol, Calc 68.4 mg/dL (0.0-131.0) 09/05/21 07:09 VLDL Cholesterol, Calc 28.80 mg/dL (5.00-40.00) 09/05/21 07:09 HDL Cholesterol 53.80 mg/dL (40.00-60.00) 09/05/21 07:09 Cholesterol/HDL Ratio 2.81 Ratio 09/05/21 07:09 TSH 2.140 mIU/L (0.465-4.680) 09/05/21 07:09 Urine Color Yellow 08/31/21 05:52 Urine Appearance Turbid (Clear) H 08/31/21 05:52 Urine pH 5.5 (5.0-8.0) 08/31/21 05:52 Ur Specific [place] 1.025 (1.001-1.035) 08/31/21 05:52 Urine Protein 1+ (Negative) H 08/31/21 05:52 Urine Glucose (UA) Negative (Negative) 08/31/21 05:52 Urine Ketones Negative (Negative) 08/31/21 05:52 Urine Blood Negative (Negative) 08/31/21 05:52 Urine Nitrite Negative (Negative) 08/31/21 05:52 Urine Bilirubin Negative (Negative) 08/31/21 05:52 Urine Urobilinogen <2.0 mg/dL (<2.0) 08/31/21 05:52 Ur Leukocyte Esterase Large (Negative) H 08/31/21 05:52 Urine RBC 3 /hpf (0-5) 08/31/21 05:52 Urine WBC 69 /hpf (0-5) H 08/31/21 05:52 Ur Squamous Epith Cells 53 /hpf (0-4) H 08/31/21 05:52 Urine Bacteria Rare /hpf (None) H 08/31/21 05:52 Hyaline Casts 5 /lpf (0-2) H 08/31/21 05:52 Urine Mucus Occasional /hpf (None) H 08/31/21 05:52 Urine HCG, Qual Not Detected (Not Detectd) 08/31/21 16:10 Urine Opiates Screen Not Detected (NotDetected) 08/31/21 05:52 Ur Oxycodone Screen Not Detected (NotDetected) 08/31/21 05:52 Urine Methadone Screen Not Detected (NotDetected) 08/31/21 05:52 Ur Propoxyphene Screen Not Detected (NotDetected) 08/31/21 05:52 Ur Barbiturates Screen Not Detected (NotDetected) 08/31/21 05:52 U Tricyclic Antidepress Detected (NotDetected) H 08/31/21 05:52 Ur Phencyclidine Scrn Not Detected (NotDetected) 08/31/21 05:52 Ur Amphetamines Screen Not Detected (NotDetected) 08/31/21 05:52 U Methamphetamines Scrn Not Detected (NotDetected) 08/31/21 05:52 U Benzodiazepines Scrn Not Detected (NotDetected) 08/31/21 05:52 [place] 0.6 mmol/L 09/05/21 07:09 Urine Cocaine Screen Not Detected (NotDetected) 08/31/21 05:52 U Marijuana (THC) Screen Detected (NotDetected) H 08/31/21 05:52 Coronavirus (PCR) Not Detected (Not Detectd) 08/31/21 14:27 09/05/21 11:54 09/05/21 13:32
[2021-09-05] MEDS: ACETAMINOPHEN TAB 325 MG TAB PO PRN (16:05)
[2021-09-05] MEDS: LATANOPROST 0.005% OPHTH DROPS 2.5 ML BTL BOTH EYES SCH (21:05)
--- NOTE | 2021-09-06 01:02 | P.CONS ---
History of Present Illness - Reason for Consult Consult date: 09/05/21 - History of Present Illness Patient is a 45-year-old female with a PMH of gastric bypass, hypertension, type II DM, and GERD who had presented to the emergency room with complaints of hallucinations and anxiety. The patient was admitted to the mental health unit where she was seen and evaluated. The patient reports ongoing insomnia due to recent discontinuation of her long-term benzodiazepines. She denies any additi onal complaints. Denies experiencing chest discomfort, shortness of breath, fever, chills, cough, nausea, vomiting, diarrhea. Laboratory evaluation was reviewed. UA was abnormal, although patient denied urinary complaints. Patient denied tobacco use but did report using marijuana. Review of systems: Pertinent positives and negatives as discussed in HPI, a complete review of systems was performed and all other systems are negative. Physical examination: General: non toxic, no distress, appears at stated age, obese Derm: no unusual rashes/lesions no unusual ecchymoses, warm, dry Head: atraumatic, normocephalic, symmetric Eyes: EOMI, no lid lag, anicteric sclera, pupils equal round reactive to light ENT: Nose and ears atraumatic, no thrush, no pharyngeal erythema Neck: No thyromegaly, no cervical lymphadenopathy, trachea midline, supple Mouth: no lip lesion, mucus membranes moist Cardiovascular: S1S2 reg, no murmur, positive posterior tibial pulse bilateral, no edema, capillary refill less than 2 seconds Lungs: CTA bilateral, no rhonchi, no rales , no accessory muscle use Abdominal: soft, nontender to palpation, no guarding, no appreciable organomegaly, normal bowel sounds Ext: no gross muscle atrophy, muscle strength 5 out of 5 in all 4 extremities grossly, no contractures, Neuro: CN II-XI grossly intact, light touch intact all 4 extremities, finger to nose within normal limits, Psych: Alert, oriented, appropriate affect Assessment/plan Abnormal UA -Likely colonization -Hold off on antibiotics at this time Marijuana abuse -Advised on importance of cessation Chronic conditions: Hypertension, hypothyroidism, type II DM -Continue with home meds Psychosis -As per psychiatry Thank you for allowing us to participate in the care of this patient. We will follow peripherally. Do not hesitate to contact us with questions. Someone can be reached from the [facility] hospitalist group at all hours of the day at [phone]. Past Medical History Past Medical History: Heart Failure, Diabetes Mellitus, Eye Disorder, GERD/Reflux, Hypertension, Liver Disease, Osteoarthritis (OA), Skin Disorder, Sleep Apnea/CPAP/BIPAP, Thyroid Disorder Additional Past Medical History / Comment(s): Pt has sleep apnea with cpap. Hx heart failure Feb 2014 (patient states he no longer has heart failure-2018). Optic neurititis, left eye, fatty liver, Rosacea on face. History of Any Multi-Drug Resistant Organisms: MRSA Year Discovered:: 2013 MDRO Source:: Chin, Nose Past Surgical History: Cholecystectomy, Tonsillectomy Additional Past Surgical History / Comment(s): Kidney stone stent placed left side. States bled out after tonsilectomy at 27 yrs of age and had blood transfusion. gastric sleeve december 2018 Past Anesthesia/Blood Transfusion Reactions: No Reported Reaction Past Psychological History: Anxiety, Bipolar, Depression, Schizoaffective Disorder Additional Psychological History / Comment(s): PT LIVES WITH 8 YR OLD SON. 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 Smoking Status: Former smoker Past Alcohol Use History: Occasional Additional Past Alcohol Use History / Comment(s): Patient states that she drink alcohol once a week. Past Drug Use History: None Reported - Past Family History Son(s) Family Medical History: Seizure Disorder Mother Family Medical History: No Reported History Additional Family Medical History / Comment(s): MOTHER IS ALIVE AND DOING WELL AT AGE 56, Bipolar Father Family Medical History: No Reported History Additional Family Medical History / Comment(s): Hepatitis Medications and Allergies Home Medications Medication Instructions Recorded Confirmed Type Levothyroxine Sodium [Synthroid] 150 mcg PO DAILY 02/11/14 09/05/21 History Brimonidine Tartrate [Alphagan P 1 drop BOTH EYES BID 12/10/18 09/05/21 History 0.2% Ophth Soln] Dorzolamide/Timolol/Pf 1 drop BOTH EYES BID 12/10/18 09/05/21 History [Dorzolamide-Timolol 2%-0.5%] Latanoprost [Xalatan 0.005%] 1 drop BOTH EYES HS 12/10/18 09/05/21 History [place] Carbonate 300 mg PO BID 10/25/19 09/05/21 History Pantoprazole Sodium 20 mg PO BID 10/25/19 09/05/21 History Baclofen [Lioresal] 20 mg PO QID PRN 12/25/20 09/05/21 History Losartan Potassium 50 mg PO DAILY 12/25/20 09/05/21 History Pregabalin [Lyrica] 25 mg PO BID 08/31/21 09/05/21 History QUEtiapine FUMARATE [SEROquel] 450 mg PO HS 08/31/21 09/05/21 History Ramelteon [Rozerem] 8 mg PO HS 08/31/21 09/05/21 History busPIRone HCL [Buspar] 30 mg PO BID 08/31/21 09/05/21 History metFORMIN HCL [Glucophage] 1,000 mg PO BID 08/31/21 09/05/21 History traMADol HCl [Ultram] 50 mg PO TID PRN 08/31/21 09/05/21 History Allergies Allergy/AdvReac Type Severity Reaction Status Date / Time No Known Allergies Allergy Verified 08/31/21 12:59 Physical Exam Vitals: Vital Signs Temp Pulse Resp BP Pulse Ox 09/05/21 07:21 97.4 F L 76 125/59 99 09/04/21 23:47 96.6 F L 81 16 136/78 97 Results CBC & Chem 7: 08/31/21 14:27 08/31/21 14:27 Labs: Abnormal Lab Results - Last 24 Hours (Table) 09/05/21 Range/Units 07:09 Hemoglobin A1c 6.4 H (0.0-6.0) %
[2021-09-06] MEDS: LEVOTHYROXINE 75 MCG TAB PO SCH (07:58)
[2021-09-06] MEDS: LITHIUM CARBONATE 300 MG CAP PO SCH ×2 (07:59→21:39)
[2021-09-06] MEDS: busPIRone HCl 10 MG TAB PO SCH ×2 (07:59→21:39)
[2021-09-06] MEDS: PANTOPRAZOLE 40 MG TABLET PO SCH ×2 (08:01→17:16)
[2021-09-06] MEDS: ESCITALOPRAM 5 MG TAB PO SCH (08:01)
[2021-09-06] MEDS: LOSARTAN 50 MG TAB PO SCH (08:02)
[2021-09-06] MEDS: metFORMIN 500 MG TAB PO SCH ×2 (08:03→17:16)
[2021-09-06] MEDS: BRIMONIDINE TARTRATE 0.2% DROPS 5 ML BTL BOTH EYES SCH ×2 (09:04→21:40)
[2021-09-06] MEDS: DORZOLAMIDE-TIMOLOL 2.23%/0.68 10ML BTL BOTH EYES SCH ×2 (09:04→21:40)
[2021-09-06] MEDS: LORazepam 1 MG TAB PO SCH ×2 (13:43→21:40)
--- NOTE | 2021-09-06 13:53 | P.PN ---
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 Interim history: I reviewed the medical record, interviewed the patient and discussed the treatment and treatment plan with the treatment team. She remains preoccupied with benzodiazepine treatment. Her anxiety increased partially with the thought that her new provider also may not prescribe her a benzodiazepine. She again emphasized that "no other medication" was effective in relieving anxiety. She appeared to understand that she is physiologically dependent on benzodiazepine. She again denied that she had missed use her prescriptions of clonazepam. I reviewed her controlled subscription profile on [facility]. She did not show a pattern suggestive of misuse use or excessive use of clonazepam. She regularly took 1 mg twice a day. The outreach and education social worker spoke with her mother. Apparently this was a long conversation because the mother was distraught and frustrated over the patient's behavior. She reports a stable mood and improved sleep. She has had no episodes of emotional dyscontrol since admission to the unit. She denied that she be experiencing thoughts of or suicide. She is attending therapeutic groups and activities. We discussed her benzodiazepine use and her fear of not obtaining a prescription for benzodiazepine from her new outpatient provider. I explained that if I were her provider I would feel apprehensive prescribing the medication given that she had overdosed on a benzodiazepine when she was intoxicated. I suggested she work with a new provider and develop a trusting relationship. Medical consult appreciated. [place] level 0.6 Mental status exam: She presented as a casually groomed moderately obese 45-year-old female who was pleasant on approach. She made eye contact and attended to the interview. She had a sad facial expression but did not cry during the interview. She had psychomotor retardation but no abnormal involuntary movements. Her speech was spontaneous with decreased rate and rhythm. Her affect was depressed and not reactive. She denied suicidal ideation, wishes homicidal ideation. She did not express feelings of hopelessness, helplessness or worthlessness she ruminated about her benzodiazepine use and access to prescriptions of benzodiazepine when she leaves the hospital. She did not express ideas reference, paranoid ideation or delusions. Her thinking was abstract. Associations were coherent, logical and goal directed. She denied hallucinations did not appear to responding to internal stimuli. Assessment: Overall clinical condition has improved from admission. She remains benzodiazepine focused and afraid that her new outpatient provider may not prescribe a benzodiazepine. She continues show signs and symptoms of depression and complicated by psychosis or suicidality. Plan: Continue inpatient treatment. Safety precautions. Continue BuSpar 30 mg twice a day and lithium carbonate 300 mg by mouth twice a day. Continue Lexapro 5 mg daily and titrated according to clinical response and tolerance. Ativan 1 mg by mouth twice a day. Continue other medications for the treatment of chronic medical conditions. One-to-one sitter while she is using her CPAP at night. Encourage continued participation in therapeutic groups and activities. Evaluate clinical status response to treatment on a daily basis.
[2021-09-06] MEDS: ACETAMINOPHEN TAB 325 MG TAB PO PRN ×2 (17:17→21:43)
[2021-09-06] MEDS: traMADol 50 MG TAB PO PRN (18:49)
[2021-09-06] MEDS: LATANOPROST 0.005% OPHTH DROPS 2.5 ML BTL BOTH EYES SCH (21:38)
[2021-09-07] MEDS: LEVOTHYROXINE 75 MCG TAB PO SCH (07:23)
[2021-09-07] MEDS: LITHIUM CARBONATE 300 MG CAP PO SCH (08:33)
[2021-09-07] MEDS: LOSARTAN 50 MG TAB PO SCH (08:33)
[2021-09-07] MEDS: PANTOPRAZOLE 40 MG TABLET PO SCH (08:34)
[2021-09-07] MEDS: busPIRone HCl 10 MG TAB PO SCH (08:34)
[2021-09-07 08:35] VITALS: BP 140/83; PULSE 104
[2021-09-07] MEDS: BRIMONIDINE TARTRATE 0.2% DROPS 5 ML BTL BOTH EYES SCH (08:35)
[2021-09-07] MEDS: ESCITALOPRAM 5 MG TAB PO SCH (08:35)
[2021-09-07] MEDS: metFORMIN 500 MG TAB PO SCH (08:36)
[2021-09-07] MEDS: DORZOLAMIDE-TIMOLOL 2.23%/0.68 10ML BTL BOTH EYES SCH (08:39)
--- NOTE | 2021-09-07 10:19 | P.DS ---
Providers Date of admission: 09/04/21 21:27 Expected date of discharge: 09/07/21 Attending physician: Renato Cheung MD Consults: 09/04/21 22:38 Consult Physician Routine Consulting Provider: [facility] Consult Reason/Comments: H&P and medical Do you want consulting provider notified?: Yes Primary care physician: Physician Nonstaff - Discharge Diagnosis(es) (1) Bipolar depression Current Visit: Yes Status: Acute Priority: High (2) Alcohol use disorder, moderate, in sustained remission Current Visit: Yes Status: Acute Priority: Low (3) Personality disorder, unspecified Current Visit: Yes Status: Acute Priority: Low (4) Cannabis use disorder, mild, abuse Current Visit: Yes Status: Acute Priority: Low Hospital Course: Admission HPI: Admission note was completed by Dr Cheung "[She is a 45-year-old single female admitted to psychiatric unit voluntarily for complaints of insomnia, restlessness, increasing confusion, homicidal ideation and auditory and visual hallucinations. She has a long history of emotional problems beginning in early 20s. She dates the onset of her current difficulties to relapse with alcohol in February 2021. She stated that she began drinking and her alcohol use increased where she was sitting up to one fifth of liquor daily. In March 2021 she overdose on prescription clonazepam. She alleges that she does not remember taking the overdose because it occurred during a "blackout." She was admitted to the ICU at [facility] for 5 days then transferred to [facility] for inpatient psychiatric treatment. After discharge her outpatient psychiatrist refused to continue Klonopin. She described worsening problems with anxiety and insomnia even though her outpatient psychiatrist prescribed several alternatives to a benzodiazepine. None of the alternatives, including buspirone and lyrica, provided little relief of the anxiety, anxiety symptoms or insomnia. She complained that she had not slept for "several weeks" prior to admission, became increasing irritable, confused and developed auditory and visual hallucinations. However, her description of the experiences best be characterized as misperceptions rather than true hallucinatory experiences (seeing flashes of light, thinking that she heard people talking). The apparent "final straw" was becoming enraged that thoughts of harming her mother's dog. She talked about how frightening and distressing the thought of hurting this animal was to her. She became increasingly frustrated with outpatient psychiatrist. He apparently told her that he is a she has a borderline personality disorder and recommended dialectic behavioral therapy. She complained that she completed a DBT program already and has been using the skills to manage her emotional distress. She denied use of alcohol since the overdose in March 2021. She denied use of other drugs to treat opioid pain medications. She described feelings of hopelessness, helplessness and worthlessness. However she denied that she had been experiencing suicidal ideation and wishes. She described increasing irritability but denied having periods of elevated mood. She denied ideas of reference, thought insertion, thought broadcasting etc. suggestive of psychotic disorder.]" Hospital course: Upon admission to the unit patient was [directable and agreeable to commence treatment and signed adult voluntary form]. Patient got along well with other patients on the unit and followed unit protocol. Patient was compliant with the medications and denied any side effects throughout hospital course. Patient was started on her home dose of lithium 300 mg twice a day for mood stabilization, Lexapro 5 mg daily for mood/anxiety, BuSpar 30 mg twice a day for anxiety. Patient was also started on Ativan 1 mg daily at bedtime for insomnia. Patient spoke of her stressors and engaged in therapy both group and individual. Patient was also seen by medical team for history and physical exam. [] Throughout the course of the hospitalization patient gradually improved with regards to [mood stabilization, anxiety], sleep and [returned back to their baseline level of functioning]. On the day of discharge patient denied any suicidal or homicidal ideations intent or plan denied any auditory or visual hallucinations. Patient endorsed wanting to live for her health and family. The patient denied any access to guns or weapons. Patient denied any paranoia and did not endorse any delusions. Patient does have a significant history of substance abuse [and] was counseled on abstaining from all substances including alcohol and marijuana. Patient is currently abstaining from alcohol since February of last year and does not want rehab. Patient was also counseled on the medications and need for regular compliance and was encouraged to follow-up with their outpatient appointment for mental health and also for primary care. [Prior to discharge a family meeting will be arranged by elementary school social worker to answer any questions and ensure safety upon discharge.] [] Mental status exam: General Appearance: Patient appears to be overweight, stated age is alert, pleasant, and cooperative. Patient is in no acute distress and has improved hygiene and grooming Behavior: Patient is calmly seated without any agitated behavior. Speech: Patient's speech is fluent and nonpressured. Mood/Affect: Patient reports their mood is "good", affect is congruent. Suicidality/Homicidality: Patient denies having any suicidal or homicidal ideation intent or plan. Perceptions: Patient denies any auditory or visual hallucinations. Though content/process: There is no evidence of any delusional thought content and thought process is linear and goal-directed. [more future oriented] Memory and concentration: AOX3, grossly intact for the purposes of this session. Can spell "WORLD" backwards correctly. Judgment and insight: improved with guarded prognosis Impression: Bipolar disorder, current episode depressed Alcohol use disorder, moderate, in sustained remission Personality disorder NOS, rule out borderline personality disorder Cannabis use disorder mild Plan: -Continue with discharge today as patient has improved and stabilized psychiatrically and is not currently an imminent threat to [herself] and/or others. [Patient will remain at chronically elevated risk for harm to self and/or others due to her impulsivity.] -Continue medications: []Continue with Ativan 1 mg qhs prn for insomnia, lithium 300 mg bid for mood stabilization, lexapro 5 mg daily mood/anxiety, buspar 30 mg bid anxiety. -Patient was counseled on the need for medication compliance and appropriate follow-up at mental health and also primary care for medical issues. Patient verbalized understanding and agreed. -Social work to [arrange for and conduct family meeting to ensure safety upon discharge and answer any questions/concerns.] Social work also to arrange for patients follow up appointments for psychiatric care along with follow up with primary care provider. -Patient counseled on abstaining from recreational drugs and marijuana and alcohol. Was informed/educated on the adverse effects on their physical and mental health. [Patient verbally agreed and understood]. -Patient was instructed to return to the hospital or seek immediate medical care if their psychiatric or medical symptoms do worsen or reoccur. Allergies Allergy/AdvReac Type Severity Reaction Status Date / Time No Known Allergies Allergy Verified 08/31/21 12:59 Laboratory Results WBC 9.8 k/uL (3.8-10.6) 08/31/21 14:27 RBC 4.36 m/uL (3.80-5.40) 08/31/21 14: Hgb 11.7 gm/dL (11.4-16.0) 08/31/21 14: Hct 37.4 % (34.0-46.0) 08/31/21 14: MCV 85.8 fL (80.0-100.0) 08/31/21 14: MCH 26.9 pg (25.0-35.0) 08/31/21 14: MCHC 31.4 g/dL (31.0-37.0) 08/31/21 14: RDW 15.4 % (11.5-15.5) 08/31/21 14: Plt Count 319 k/uL (150-450) 08/31/21 14: MPV 7.6 08/31/21 14: Neutrophils % 66 % 08/31/21 14: Lymphocytes % 25 % 08/31/21 14: Monocytes % 4 % 08/31/21 14: Eosinophils % 2 % 08/31/21 14: Basophils % 1 % 08/31/21 14:27 Neutrophils # 6.5 k/uL (1.3-7.7) 08/31/21 14: Lymphocytes # 2.5 k/uL (1.0-4.8) 08/31/21 14: Monocytes # 0.4 k/uL (0-1.0) 08/31/21 14: Eosinophils # 0.2 k/uL (0-0.7) 08/31/21 14: Basophils # 0.1 k/uL (0-0.2) 08/31/21 14: Sodium 135 mmol/L (137-145) L 08/31/21 14:27 Potassium 3.8 mmol/L (3.5-5.1) 08/31/21 14: Chloride 99 mmol/L (98-107) 08/31/21 14: Carbon Dioxide 28 mmol/L (22-30) 08/31/21 14:27 Anion Gap 8 mmol/L 08/31/21 14:27 BUN 12 mg/dL (7-17) 08/31/21 14: Creatinine 0.82 mg/dL (0.52-1.04) 08/31/21 14:27 Est GFR (CKD-EPI)AfAm >90 (>60 ml/min/1.73 sqM) 08/31/21 14:27 Est GFR (CKD-EPI)NonAf 87 (>60 ml/min/1.73 sqM) 08/31/21 14:27 Glucose 131 mg/dL (74-99) H 08/31/21 14:[address] Glu mg/dL 136 09/05/21 07:09 Hemoglobin A1c 6.4 % (0.0-6.0) H 09/05/21 07:09 Calcium 9.0 mg/dL (8.4-10.2) 08/31/21 14:27 Total Bilirubin 0.7 mg/dL (0.2-1.3) 08/31/21 14:27 AST 20 U/L (14-36) 08/31/21 14:27 ALT 18 U/L (4-34) 08/31/21 14:27 Alkaline Phosphatase 117 U/L (38-126) 08/31/21 14:27 Total Protein 7.3 g/dL (6.3-8.2) 08/31/21 14:27 Albumin 4.3 g/dL (3.5-5.0) 08/31/21 14:27 Triglycerides 144.00 mg/dL (0.00-149.00) 09/05/21 07:09 Cholesterol 151.00 mg/dL (0.00-200.00) 09/05/21 07:09 LDL Cholesterol, Calc 68.4 mg/dL (0.0-131.0) 09/05/21 07:09 VLDL Cholesterol, Calc 28.80 mg/dL (5.00-40.00) 09/05/21 07:09 HDL Cholesterol 53.80 mg/dL (40.00-60.00) 09/05/21 07:09 Cholesterol/HDL Ratio 2.81 Ratio 09/05/21 07:09 TSH 2.140 mIU/L (0.465-4.680) 09/05/21 07:09 Urine Color Yellow 08/31/21 05:52 Urine Appearance Turbid (Clear) H 08/31/21 05:52 Urine pH 5.5 (5.0-8.0) 08/31/21 05:52 Ur Specific [place] 1.025 (1.001-1.035) 08/31/21 05:52 Urine Protein 1+ (Negative) H 08/31/21 05:52 Urine Glucose (UA) Negative (Negative) 08/31/21 05:52 Urine Ketones Negative (Negative) 08/31/21 05:52 Urine Blood Negative (Negative) 08/31/21 05:52 Urine Nitrite Negative (Negative) 08/31/21 05:52 Urine Bilirubin Negative (Negative) 08/31/21 05:52 Urine Urobilinogen <2.0 mg/dL (<2.0) 08/31/21 05:52 Ur Leukocyte Esterase Large (Negative) H 08/31/21 05:52 Urine RBC 3 /hpf (0-5) 08/31/21 05:52 Urine WBC 69 /hpf (0-5) H 08/31/21 05:52 Ur Squamous Epith Cells 53 /hpf (0-4) H 08/31/21 05:52 Urine Bacteria Rare /hpf (None) H 08/31/21 05:52 Hyaline Casts 5 /lpf (0-2) H 08/31/21 05:52 Urine Mucus Occasional /hpf (None) H 08/31/21 05:52 Urine HCG, Qual Not Detected (Not Detectd) 08/31/21 16:10 Urine Opiates Screen Not Detected (NotDetected) 08/31/21 05:52 Ur Oxycodone Screen Not Detected (NotDetected) 08/31/21 05:52 Urine Methadone Screen Not Detected (NotDetected) 08/31/21 05:52 Ur Propoxyphene Screen Not Detected (NotDetected) 08/31/21 05:52 Ur Barbiturates Screen Not Detected (NotDetected) 08/31/21 05:52 U Tricyclic Antidepress Detected (NotDetected) H 08/31/21 05:52 Ur Phencyclidine Scrn Not Detected (NotDetected) 08/31/21 05:52 Ur Amphetamines Screen Not Detected (NotDetected) 08/31/21 05:52 U Methamphetamines Scrn Not Detected (NotDetected) 08/31/21 05:52 U Benzodiazepines Scrn Not Detected (NotDetected) 08/31/21 05:52 [place] 0.6 mmol/L 09/06/21 07:27 Urine Cocaine Screen Not Detected (NotDetected) 08/31/21 05:52 U Marijuana (THC) Screen Detected (NotDetected) H 08/31/21 05:52 Coronavirus (PCR) Not Detected (Not Detectd) 08/31/21 14:27 Vital Signs Temp 97.4 F L 09/05/21 07:21 Pulse 104 H 09/07/21 08:00 Resp 16 09/04/21 23:47 BP 140/83 09/07/21 08:00 Pulse Ox 99 09/05/21 07:21 FiO2 Patient Condition at Discharge: Stable Plan - Discharge Summary Discharge Rx Participant: No New Discharge Prescriptions: New LORazepam [Ativan] 1 mg PO HS PRN 14 Days tab PRN Reason: Insomnia Escitalopram [Lexapro] 5 mg PO DAILY 30 Days tab Continue Levothyroxine Sodium [Synthroid] 150 mcg PO DAILY Brimonidine Tartrate [Alphagan P 0.2% Ophth Soln] 1 drop BOTH EYES BID Dorzolamide/Timolol/Pf [Dorzolamide-Timolol 2%-0.5%] 1 drop BOTH EYES BID Latanoprost [Xalatan 0.005%] 1 drop BOTH EYES HS Pantoprazole Sodium 20 mg PO BID metFORMIN HCL [Glucophage] 1,000 mg PO BID busPIRone HCL [Buspar] 30 mg PO BID 30 Days tab [place] Carbonate 300 mg PO BID 30 Days cap Losartan Potassium 50 mg PO DAILY traMADol HCl [Ultram] 50 mg PO TID PRN PRN Reason: Pain Discontinued Baclofen [Lioresal] 20 mg PO QID PRN PRN Reason: Muscle Spasm Ramelteon [Rozerem] 8 mg PO HS QUEtiapine FUMARATE [SEROquel] 450 mg PO HS Pregabalin [Lyrica] 25 mg PO BID Discharge Medication List Levothyroxine Sodium [Synthroid] 150 mcg PO DAILY 02/11/14 [History] Brimonidine Tartrate [Alphagan P 0.2% Ophth Soln] 1 drop BOTH EYES BID 12/10/18 [History] Dorzolamide/Timolol/Pf [Dorzolamide-Timolol 2%-0.5%] 1 drop BOTH EYES BID 12/10/18 [History] Latanoprost [Xalatan 0.005%] 1 drop BOTH EYES HS 12/10/18 [History] Pantoprazole Sodium 20 mg PO BID 10/25/19 [History] Losartan Potassium 50 mg PO DAILY 12/25/20 [History] metFORMIN HCL [Glucophage] 1,000 mg PO BID 08/31/21 [History] traMADol HCl [Ultram] 50 mg PO TID PRN 08/31/21 [History] Escitalopram [Lexapro] 5 mg PO DAILY 30 Days tab 09/07/21 [Rx] LORazepam [Ativan] 1 mg PO HS PRN 14 Days tab 09/07/21 [Rx] [place] Carbonate 300 mg PO BID 30 Days cap 09/07/21 [Rx] busPIRone HCL [Buspar] 30 mg PO BID 30 Days tab 09/07/21 [Rx] Follow up Appointment(s)/Referral(s): Nonstaff,Physician [Primary Care Provider] - 1-2 days Activity/Diet/Wound Care/Special Instructions: Activity and diet as tolerated. Avoid the use of street drugs and alcohol. Take all medications as prescribed. When you are in need of refills on your medications please contact your medical provider and/or outpatient psychiatrist to have this done. Please go to scheduled outpatient appointment for aftercare treatment. If symptoms return or become worse, call the crisis line at and/or go to the nearest emergency room for evaluation Discharge Disposition: HOME SELF-CARE
== END 2021-09-07 13:43 | disposition home or self-care (01) | DRG 885 ==
LOC: EC 04:54 → 3MHU 09-04 21:27
PROVIDERS: ADMIT Psychiatry & Neurology Psychiatry; ATTEND Psychiatry & Neurology Psychiatry
DX: F31.30 Bipolar disorder, current episode depressed, mild or moderate severity, unspecified (principal); F13.20 Sedative, hypnotic or anxiolytic dependence, uncomplicated; F25.9 Schizoaffective disorder, unspecified; F12.10 Cannabis abuse, uncomplicated; I11.0 Hypertensive heart disease with heart failure; I50.9 Heart failure, unspecified; Z20.822 Contact with and (suspected) exposure to COVID-19; F10.21 Alcohol dependence, in remission; E11.9 Type 2 diabetes mellitus without complications; E03.9 Hypothyroidism, unspecified; F41.9 Anxiety disorder, unspecified; F60.9 Personality disorder, unspecified; G47.00 Insomnia, unspecified; F29 Unspecified psychosis not due to a substance or known physiological condition; K76.0 Fatty (change of) liver, not elsewhere classified; R45.850 Homicidal ideations; Z79.84 Long term (current) use of oral hypoglycemic drugs; Z79.890 Hormone replacement therapy; Z79.899 Other long term (current) drug therapy; Z82.0 Family history of epilepsy and other diseases of the nervous system; Z87.442 Personal history of urinary calculi; Z87.891 Personal history of nicotine dependence; Z98.84 Bariatric surgery status; M19.90 Unspecified osteoarthritis, unspecified site; K21.9 Gastro-esophageal reflux disease without esophagitis; Z86.14 Personal history of Methicillin resistant Staphylococcus aureus infection; Z71.51 Drug abuse counseling and surveillance of drug abuser
CPT/HCPCS: 36415; 80053; 80061; 80178; 80306; 81001; 81025; 82075; 83036; 84443; 85025; 87635; 96372; 99285

== ENCOUNTER 2022-07-12 13:25 | Emergency (ER) | payer MEDICAID, MEDICARE ==
[2022-07-12 13:33] VITALS: RESP 18; TEMP 98.2
[2022-07-12] MEDS ORDERED: SODIUM CHLORIDE 0.9% 1,000 ML IV STA (13:39)
[2022-07-12] MEDS ORDERED: SODIUM CHLORIDE 0.9% 500 ML 500 ML IV STA (13:39)
[2022-07-12] MEDS ORDERED: DIPHENOX-ATROP 2.5-0.025 MG 1 EACH TAB PO STA (13:39)
[2022-07-12 13:57] LABS: Basophils # (A) 0.1 k/uL (0-0.2); Basophils % (A) 1 %; Eosinophils # (A) 0.1 k/uL (0-0.7); Eosinophils % (A) 2 %; HCT 37.2 % (34.0-46.0); HGB 12.2 gm/dL (11.4-16.0); Hypochromasia Slight; Lymphocytes # (A) 1.2 k/uL (1.0-4.8); Lymphocytes % (A) 15 %; MCH 28.6 pg (25.0-35.0); MCHC 32.7 g/dL (31.0-37.0); MCV 87.4 fL (80.0-100.0); Mean Platelet Volume 8.4; Monocytes # (A) 0.3 k/uL (0-1.0); Monocytes % (A) 4 %; Neutrophils # (A) 6.1 k/uL (1.3-7.7); Neutrophils % (A) 77 %; Platelet Count 261 k/uL (150-450); RBC 4.26 m/uL (3.80-5.40); RDW 14.5 % (11.5-15.5)
[2022-07-12 14:14] LABS: Chloride 101 mmol/L (98-107)
[2022-07-12 14:15] LABS: ALT 40 U/L (4-34); AST 29 U/L (14-36); African American GFR (CKD) >90 (>60 ml/min/1.73 sqM); Albumin 4.5 g/dL (3.5-5.0); Alkaline Phosphatase 152 U/L (38-126); Amylase 48 U/L (30-110); Anion Gap 8 mmol/L; Blood Urea Nitrogen 7 mg/dL (7-17); Calcium 9.5 mg/dL (8.4-10.2); Carbon Dioxide 25 mmol/L (22-30); Glucose 107 mg/dL (74-99); Lipase 66 U/L (23-300); Non-African American GFR(CKD) >90 (>60 ml/min/1.73 sqM); Potassium 3.6 mmol/L (3.5-5.1); Sodium 134 mmol/L (137-145); Total Bilirubin 0.9 mg/dL (0.2-1.3); Total Protein 7.7 g/dL (6.3-8.2)
--- NOTE | 2022-07-12 14:17 | ED ---
General Adult HPI - General Chief complaint: Nausea/Vomiting/Diarrhea Stated complaint: vomiting Time Seen by Provider: 07/12/22 13:30 Source: patient, EMS, RN notes reviewed, old records reviewed Mode of arrival: EMS Limitations: no limitations - History of Present Illness Initial comments: This a 46-year-old female presents emergency Department complaining that she is having vomiting diarrhea for the last 3 days. Patient states she's been unable to keep anything down. Patient states she's having mid abdominal cramping but it is not currently ongoing. Patient states the nausea resolved once he gave her Zofran in the ambulance. Patient denies any chest pain difficulty breathing first breath per patient denies any fever chills or cough per patient denies any back pain. Patient denies dysuria hematuria or urinary frequency. - Related Data Home Medications Medication Instructions Recorded Confirmed Levothyroxine Sodium [Synthroid] 150 mcg PO DAILY 02/11/14 09/05/21 Brimonidine Tartrate [Alphagan P 1 drop BOTH EYES BID 12/10/18 09/05/21 0.2% Ophth Soln] Dorzolamide/Timolol/Pf 1 drop BOTH EYES BID 12/10/18 09/05/21 [Dorzolamide-Timolol 2%-0.5%] Latanoprost [Xalatan 0.005%] 1 drop BOTH EYES HS 12/10/18 09/05/21 Pantoprazole Sodium 20 mg PO BID 10/25/19 09/05/21 Losartan Potassium 50 mg PO DAILY 12/25/20 09/05/21 metFORMIN HCL [Glucophage] 1,000 mg PO BID 08/31/21 09/05/21 traMADol HCl [Ultram] 50 mg PO TID PRN 08/31/21 09/05/21 Previous Rx's Medication Instructions Recorded Escitalopram [Lexapro] 5 mg PO DAILY 30 Days tab 09/07/21 LORazepam [Ativan] 1 mg PO HS PRN 14 Days tab 09/07/21 [place] Carbonate 300 mg PO BID 30 Days cap 09/07/21 busPIRone HCL [Buspar] 30 mg PO BID 30 Days tab 09/07/21 Allergies Allergy/AdvReac Type Severity Reaction Status Date / Time No Known Allergies Allergy Verified 07/12/22 13:33 Review of Systems ROS Statement: Those systems with pertinent positive or pertinent negative responses have been documented in the HPI. ROS Other: All systems not noted in ROS Statement are negative. Past Medical History Past Medical History: Heart Failure, Diabetes Mellitus, Eye Disorder, GERD/Reflux, Hypertension, Liver Disease, Osteoarthritis (OA), Skin Disorder, Sleep Apnea/CPAP/BIPAP, Thyroid Disorder Additional Past Medical History / Comment(s): Pt has sleep apnea with cpap. Hx heart failure Feb 2014 (patient states he no longer has heart failure-2018). Optic neurititis, left eye, fatty liver, Rosacea on face. History of Any Multi-Drug Resistant Organisms: MRSA Date of last positivie culture/infection: 2013 MDRO Source:: Chin, Nose Past Surgical History: Cholecystectomy, Tonsillectomy Additional Past Surgical History / Comment(s): Kidney stone stent placed left side. States bled out after tonsilectomy at 27 yrs of age and had blood transfusion. gastric sleeve december 2018 Past Anesthesia/Blood Transfusion Reactions: No Reported Reaction Past Psychological History: Anxiety, Bipolar, Depression, Schizoaffective Disorder Smoking Status: Former smoker Past Alcohol Use History: Occasional Past Drug Use History: None Reported - Past Family History Son(s) Family Medical History: Seizure Disorder Mother Family Medical History: No Reported History Additional Family Medical History / Comment(s): MOTHER IS ALIVE AND DOING WELL AT AGE 56, Bipolar Father Family Medical History: No Reported History Additional Family Medical History / Comment(s): Hepatitis General Exam - General Exam Comments Initial Comments: GENERAL: Patient is well-developed and well-nourished. Patient is nontoxic and well- hydrated and is in mild distress. ENT: Neck is soft and supple. No significant lymphadenopathy is noted. Oropharynx is clear. Moist mucous membranes. Neck has full range of motion without eliciting any pain. EYES: The sclera were anicteric and conjunctiva were pink and moist. Extraocular movements were intact and pupils were equal round and reactive to light. Eyelids were unremarkable. PULMONARY: Unlabored respirations. Good breath sounds bilaterally. No audible rales rhonchi or wheezing was noted. CARDIOVASCULAR: There is a regular rate and rhythm without any murmurs gallops or rubs. ABDOMEN: Soft and nontender with normal bowel sounds. SKIN: Skin is clear with no lesions or rashes and otherwise unremarkable. NEUROLOGIC: Patient is alert and oriented x3. Cranial nerves II through XII are grossly intact. Motor and sensory are also intact. Normal speech, volume and content. Symmetrical smile. MUSCULOSKELETAL: Normal extremities with adequate strength and full range of motion. LYMPHATICS: No significant lymphadenopathy is noted PSYCHIATRIC: Normal psychiatric evaluation. Normal interpersonal interactions appears functionally intact in deals appropriately with others. No signs of depression. No signs of anxiety. Limitations: no limitations Course Vital Signs 07/12/22 13:29 Temperature 98.2 F Pulse Rate 73 Respiratory 18 Rate Blood Pressure 151/76 O2 Sat by Pulse 99 Oximetry Medical Decision Making - Medical Decision Making Was pt. sent in by a medical professional or institution (, PA, BREAST SURGEON, urgent care, hospital, or alf...) When possible be specific @ -No Did you speak to anyone other than the patient for history (EMS, parent, family, police, friend...)? What history was obtained from this source @ -No Did you review nursing and triage notes (agree or disagree)? Why? @ -I reviewed and agree with nursing and triage notes Were old charts reviewed (outside hosp., previous admission, EMS record, old EKG, old radiological studies, urgent care reports/EKG's, alf records)? Report findings @ -No old charts were reviewed Differential Diagnosis (chest pain, altered mental status, abdominal pain women, abdominal pain men, vaginal bleeding, weakness, fever, dyspnea, syncope, headache, dizziness, GI bleed, back pain, seizure, CVA, palpatations, mental health, musculoskeletal)? @ -Differential Abdominal Pain Women: Appendicitis, Cholecystitis, diverticulosis, ischemic bowel, pancreatitis, hepatitis, UTI, gastroenteritis, AAA, incarcerated hernia, bowel obstruction, constipation, inflammatory bowel, hepatitis, peptic ulcer disease, splenic infarction, perforated viscus, vulvitis, ovarian torsion, PID, kidney stone, placenta abruption, this is not meant to be an all-inclusive list EKG interpreted by me (3pts min.). @ -As above X-rays interpreted by me (1pt min.). @ -None done CT interpreted by me (1pt min.). @ -None done U/S interpreted by me (1pt. min.). @ -None done What testing was considered but not performed or refused? (CT, X-rays, U/S, labs)? Why? @ -None What meds were considered but not given or refused? Why? @ -None Did you discuss the management of the patient with other professionals (professionals i.e. , PA, BREAST SURGEON, lab, RT, psych nurse, social sciences research scientist, stripping shovel oiler, teacher, u.s. revenue officer, casework specialist)? Give summary @ -No Was smoking cessation discussed for >3mins.? @ -No Was critical care preformed (if so, how long)? @ -No Were there social determinants of health that impacted care today? How? (Homelessness, low income, unemployed, alcoholism, drug addiction, transportation, low edu. Level, literacy, decrease access to med. care, prison, rehab)? @ -No Was there de-escalation of care discussed even if they declined (Discuss DNR or withdrawal of care, Hospice)? DNR status @ -No What co-morbidities impacted this encounter? (DM, HTN, Smoking, COPD, CAD, Cancer, CVA, ARF, Chemo, Hep., AIDS, mental health diagnosis, sleep apnea, morbid obesity)? @ -None Was patient admitted / discharged? Hospital course, mention meds given and route, prescriptions, significant lab abnormalities, going to OR and other pertinent info. @ -Patient is given Zofran route and feeling considerably better. Patient was given a liter and a half of fluid by us in 500 by EMS. I went back and reevaluated the patient she was feeling considerably better she'll be discharged home there was no what Undiagnosed new problem with uncertain prognosis? @ -No Drug Therapy requiring intensive monitoring for toxicity (Heparin, Nitro, Insulin, Cardizem)? @ -No Were any procedures done? @ -No Diagnosis/symptom? @ -Gastroenteritis Acute, or Chronic, or Acute on Chronic? @ -Acute Uncomplicated (without systemic symptoms) or Complicated (systemic symptoms)? @ -Uncomplicated Side effects of treatment? @ -No Exacerbation, Progression, or Severe Exacerbation? @ -No Poses a threat to life or bodily function? How? (Chest pain, [place], [place], pneumonia, PE, COPD, DKA, ARF, appy, cholecystitis, CVA, Diverticulitis, Homicidal, Suicidal, threat to staff... and all critical care pts) @ -No - Lab Data Result diagrams: 07/12/22 13:41 07/12/22 13:41 Lab Results 07/12/22 07/12/22 Range/Units 13:41 13:41 WBC 8.0 (3.8-10.6) k/uL RBC 4.26 (3.80-5.40) m/uL Hgb 12.2 (11.4-16.0) gm/dL Hct 37.2 (34.0-46.0) % MCV 87.4 (80.0-100.0) fL MCH 28.6 (25.0-35.0) pg MCHC 32.7 (31.0-37.0) g/dL RDW 14.5 (11.5-15.5) % Plt Count 261 (150-450) k/uL MPV 8.4 Neutrophils % 77 % Lymphocytes % 15 % Monocytes % 4 % Eosinophils % 2 % Basophils % 1 % Neutrophils # 6.1 (1.3-7.7) k/uL Lymphocytes # 1.2 (1.0-4.8) k/uL Monocytes # 0.3 (0-1.0) k/uL Eosinophils # 0.1 (0-0.7) k/uL Basophils # 0.1 (0-0.2) k/uL Hypochromasia Slight Sodium 134 L (137-145) mmol/L Potassium 3.6 (3.5-5.1) mmol/L Chloride 101 (98-107) mmol/L Carbon Dioxide 25 (22-30) mmol/L Anion Gap 8 mmol/L BUN 7 (7-17) mg/dL Creatinine 0.49 L (0.52-1.04) mg/dL Est GFR (CKD-EPI)AfAm >90 (>60 ml/min/1.73 sqM) Est GFR (CKD-EPI)NonAf >90 (>60 ml/min/1.73 sqM) Glucose 107 H (74-99) mg/dL Calcium 9.5 (8.4-10.2) mg/dL Total Bilirubin 0.9 (0.2-1.3) mg/dL AST 29 (14-36) U/L ALT 40 H (4-34) U/L Alkaline Phosphatase 152 H (38-126) U/L Total Protein 7.7 (6.3-8.2) g/dL Albumin 4.5 (3.5-5.0) g/dL Amylase 48 (30-110) U/L Lipase 66 (23-300) U/L Disposition Clinical Impression: Gastroenteritis Disposition: HOME SELF-CARE Instructions (If sedation given, give patient instructions): Gastroenteritis (ED) Is patient prescribed a controlled substance at d/c from ED?: No Referrals: Nonstaff,Physician [Primary Care Provider] - 1-2 days Time of Disposition: 15:00
[2022-07-12] MEDS ORDERED: DIPHENOX-ATROP STARTER PACK 8 TAB BTL PO STA (15:00)
[2022-07-12] MEDS ORDERED: ONDANSETRON 4 MG ODT STARTER PACK 2 TAB BTL PO STA (15:00)
[2022-07-12 15:27] VITALS: BP 152/80; PULSE 74
== END 2022-07-12 15:31 | disposition home or self-care (01) ==
LOC: EC 13:25
DX: K52.9 Noninfective gastroenteritis and colitis, unspecified (principal); I11.0 Hypertensive heart disease with heart failure; I50.9 Heart failure, unspecified; E11.9 Type 2 diabetes mellitus without complications; G47.30 Sleep apnea, unspecified; K21.9 Gastro-esophageal reflux disease without esophagitis; M19.90 Unspecified osteoarthritis, unspecified site; E07.9 Disorder of thyroid, unspecified; F41.9 Anxiety disorder, unspecified; F31.9 Bipolar disorder, unspecified; Z79.84 Long term (current) use of oral hypoglycemic drugs; Z79.890 Hormone replacement therapy; Z79.899 Other long term (current) drug therapy; Z87.891 Personal history of nicotine dependence; Z90.49 Acquired absence of other specified parts of digestive tract
CPT/HCPCS: 36415; 80053; 82150; 83690; 85025; 99284; 96360; S0119

== ENCOUNTER → 2023-11-08 | Outpatient (CLI) | payer MEDICARE, OTHER | END | disposition home or self-care (01) | LOC: LABPAT 15:30 | PROVIDERS: ATTEND Orthopaedic Surgery | DX: Z01.812 Encounter for preprocedural laboratory examination (principal); Z22.322 Carrier or suspected carrier of Methicillin resistant Staphylococcus aureus; M17.11 Unilateral primary osteoarthritis, right knee | CPT/HCPCS: 87070 ==

== ENCOUNTER 2023-12-10 08:24 | Observation (INO) | payer MEDICARE, OTHER ==
--- NOTE | 2023-12-09 12:45 | P.HPOR ---
History of Present Illness H&P Date: 12/09/23 Chief Complaint: Right knee pain The patient is a 48-year-old female who presents with progressive right knee pain for the past 6 months. She notes progressive anterior medial pain worse with weightbearing activities. She also notes stiffness and giving way. She has tried previous medications along with injections and bracing without much relief. Review of Systems Per HPI Past Medical History Past Medical History: Heart Failure, Diabetes Mellitus, Eye Disorder, GERD/Reflux, Hypertension, Liver Disease, Osteoarthritis (OA), Skin Disorder, Sleep Apnea/CPAP/BIPAP, Thyroid Disorder Additional Past Medical History / Comment(s): Pt has sleep apnea with cpap. Hx heart failure Feb 2014 (patient states he no longer has heart failure-2018). Optic neurititis, left eye, fatty liver, Rosacea on face. History of Any Multi-Drug Resistant Organisms: MRSA Date of last positivie culture/infection: 2013 MDRO Source:: Chin, Nose Past Surgical History: Cholecystectomy, Tonsillectomy Additional Past Surgical History / Comment(s): Kidney stone stent placed left side. States bled out after tonsilectomy at 27 yrs of age and had blood transfusion. gastric sleeve december 2018 Past Anesthesia/Blood Transfusion Reactions: No Reported Reaction Past Psychological History: Anxiety, Bipolar, Depression, Schizoaffective Disorder Smoking Status: Former smoker Past Alcohol Use History: Occasional Past Drug Use History: None Reported - Past Family History Son(s) Family Medical History: Seizure Disorder Mother Family Medical History: No Reported History Additional Family Medical History / Comment(s): MOTHER IS ALIVE AND DOING WELL AT AGE 56, Bipolar Father Family Medical History: No Reported History Additional Family Medical History / Comment(s): Hepatitis Medications and Allergies Home Medications Medication Instructions Recorded Confirmed Type Levothyroxine Sodium [Synthroid] 150 mcg PO DAILY 02/11/14 06/11/23 History Losartan Potassium 100 mg PO DAILY 12/25/20 06/11/23 History metFORMIN HCL [Glucophage] 1,000 mg PO BID-W/MEALS 08/31/21 06/11/23 History busPIRone HCL [Buspar] 30 mg PO BID 30 Days tab 09/07/21 06/11/23 Rx Baclofen [Lioresal] 20 mg PO QID PRN 06/11/23 06/11/23 History Benztropine Mesylate [Cogentin] 0.5 mg PO BID 06/11/23 06/11/23 History Cariprazine HCl [Vraylar] 4.5 mg PO HS 06/11/23 06/11/23 History Escitalopram [Lexapro] 20 mg PO HS 06/11/23 06/11/23 History HYDROcodone/APAP 5-325MG [[place] 1 tab PO BID PRN 06/11/23 06/11/23 History 5-325] LORazepam [Ativan] 1 mg PO BID PRN 06/11/23 06/11/23 History [place] Carbonate 300 mg PO TID 06/11/23 06/11/23 History Omeprazole [PriLOSEC] 20 mg PO BID 06/11/23 06/11/23 History Allergies Allergy/AdvReac Type Severity Reaction Status Date / Time No Known Allergies Allergy Verified 06/11/23 22:40 Physical Examination - Knee right Appearance: effusion Effusion grade: grade 1 Varus alignment in stance: 10 degrees Tenderness with palpation: anterior, medial Pain: throughout ROM Gait: limping ROM: extension: -10 degrees ROM: flexion: 110 degrees Crepitus with motion: Yes Strength: extension: 5/5 Strength: flexion: 5/5 Meniscal tests: medial meniscal tests: positive, medial joint line pain: positive Results The patient is a well-developed well-nourished female approximately 5 foot 4, 220 pounds of endomorphic habitus. HEENT exam is nonfocal, neck is supple. She has painless passive motion of the right hip. Straight leg raise is negative. She is tender about the right knee along the medial joint line. Collaterals are stable, Brock's negative, Rachael's elicits medial pain. Her distal neurovascular appears intact in the right lower extremity. - Diagnostic results Knee x-ray: image reviewed (X-rays of the right knee obtained the office show severe medial and patellofemoral compartment narrowing with exup-ui-stoh changes along with subchondral sclerosis. Genu varum deformity is noted.) Assessment and Plan Assessment: Right knee severe medial and patellofemoral compartment osteoarthrosis Plan: I talked to the patient at length regarding her condition along with treatment options. At this point she is quite symptomatic and limited having pain and mechanical symptoms related to her right knee osteoarthrosis despite previous conservative measures. After a thorough discussion she opts to proceed with surgery. We will plan to proceed with right total knee arthroplasty. Risks and benefits were discussed at length in layman's terms. We will institute DVT prophylaxis postoperatively.
[~2023-12-10 08:24] MED LIST: LIDOCAINE 1% (10MG/ML) FOR IV START INTRADERMA PRN; MIDAZOLAM 2 MG/2 ML VIAL IV PRN; TRANEXAMIC 1,000 MG/100ML-NACL 1,000 MG in SALINE 1 100ML.BAG IVPB PRN; fentaNYL (PF) 50 MCG/ML 2 ML AMP IVP PRN
[2023-12-10 09:23] LABS: Glucose,Whole Blood 97 mg/dL (70-110)
[2023-12-10] MEDS: IV FLUID CONTINUATION 1,000 ML IV ONE ×2 (09:24→15:20)
[2023-12-10] MEDS: LACTATED RINGERS 1,000 ML IV SCH (09:25)
[2023-12-10] MEDS: ACETAMINOPHEN TAB 500 MG TAB PO PRN (09:31)
[2023-12-10] MEDS: DEXAMETHASONE SOD PHOSPHATE 4 MG/ML 1 ML VIAL IV ONE (09:31)
[2023-12-10] MEDS: MELOXICAM 7.5 MG TAB PO PRN (09:31)
[2023-12-10] MEDS: ONDANSETRON 4 MG/2 ML VIAL IVP ONE (09:32)
[2023-12-10] MEDS: fentaNYL (PF) 50 MCG/ML 2 ML AMP IVP ONE (09:45)
[2023-12-10] MEDS: MIDAZOLAM 2 MG/2 ML VIAL IVP ONE (09:45)
[2023-12-10] MEDS ORDERED: SODIUM CHLORIDE 0.9% (PF) 10 ML VIAL ONE (10:13)
[2023-12-10] MEDS ORDERED: TRANEXAMIC 1,000 MG/100ML-NACL PREMIX BAG ONE (10:13)
[2023-12-10] MEDS ORDERED: ROPIVACAINE 5 MG/ML 30 ML VIAL ONE (10:13)
[2023-12-10] MEDS ORDERED: KETAMINE HCL IN 0.9 % NACL 50 MG/5 ML SYRINGE ONE (10:13)
[2023-12-10] MEDS ORDERED: MIDAZOLAM 2 MG/2 ML VIAL ONE (10:13)
[2023-12-10] MEDS ORDERED: PROPOFOL 10 MG/ML 20 ML VIAL IV ONE (10:13)
[2023-12-10] MEDS ORDERED: fentaNYL (PF) 50 MCG/ML 2 ML AMP ONE (10:13)
[2023-12-10] MEDS ORDERED: LIDOCAINE 1% INJ 10MG/ML (20 ML MDV) ONE (10:13)
[2023-12-10] MEDS ORDERED: DEXAMETHASONE SOD PHOSPHATE 4 MG/ML 1 ML VIAL ONE (10:13)
--- NOTE | 2023-12-10 10:31 | P.ANPRN ---
Procedure Note - Anesthesia - Nerve Block Performed Right Adductor Canal Infusion Time Out Performed: Yes Date of Procedure: 12/10/23 Procedure Start Time: :44 Procedure Stop Time: :52 Location of Patient: PreOp Indication: Acute Post-Operative Pain, Requested by Surgeon Sedation Type: Sedate with meaningful contact maintained Preparation: Sterile Prep, Sterile Dressing Position: Supine Needle Types: Pajunk Needle Gauge: 18 Ultrasound used to visualize needle placement: Yes Ultrasound used to observe medication spread: Yes Injectate: 0.5% Ropivacaine (see comment for volume) (20 ml + 10 ml NS) Blood Aspirated: No Pain Paresthesia on Injection Noted: No Resistance on Injection: Normal Image Stored and Saved: Yes Events: Uneventful and Well Tolerated
--- NOTE | 2023-12-10 10:32 | P.ANPRN ---
Procedure Note - Anesthesia - Nerve Block Performed Right iPack Single Time Out Performed: Yes Date of Procedure: 12/10/23 Procedure Start Time: 09:53 Procedure Stop Time: 09:58 Location of Patient: PreOp Indication: Acute Post-Operative Pain, Requested by Surgeon Sedation Type: Sedate with meaningful contact maintained Preparation: Sterile Prep Position: Left Lateral Needle Types: Pajunk Needle Gauge: 21 Ultrasound used to visualize needle placement: Yes Ultrasound used to observe medication spread: Yes Injectate: 0.5% Ropivacaine (see comment for volume) (20 ml + 10 ml NS + 4 mg Dexamethasone) Blood Aspirated: No Pain Paresthesia on Injection Noted: No Resistance on Injection: Normal Image Stored and Saved: Yes Events: Uneventful and Well Tolerated
[2023-12-10] MEDS: ceFAZolin 1,000 MG in SODIUM CHLORIDE 0.9% 1,000 ML IRRIGATION ONE (10:44)
[2023-12-10] MEDS: LACTATED RINGERS 1,000 ML IV ONE (11:08)
[2023-12-10] MEDS ORDERED: HYDROcodone/APAP 5-325MG 1 EACH TAB PO PRN (11:58)
[2023-12-10] MEDS ORDERED: NALOXONE 0.4 MG/ML 1 ML VIAL IV PRN (11:58)
[2023-12-10] MEDS ORDERED: hydrOXYzine pamoate 25 MG CAP PO PRN (11:58)
[2023-12-10] MEDS ORDERED: MAGNESIUM HYDROXIDE 2,400 MG/30 ML CUP PO PRN (11:58)
--- NOTE | 2023-12-10 12:20 | P.OP ---
Date of Procedure: 12/10/23 Preoperative Diagnosis: Right knee severe tricompartmental osteoarthrosis Postoperative Diagnosis: Same Procedure(s) Performed: Right total knee arthroplastycemented cruciate retaining Implants: DePuy attune size 5 narrow cemented femoral component, size 4 cemented tibial component, 11 mm articular surface, 32 mm cemented patellar component. There is a cruciate retaining implant. Anesthesia: regional, spinal Surgeon: Jung De La Cruz Junior Manufacturing Engineer #1: Marcus Lobo Estimated Blood Loss (ml): 50 Pathology: none sent Condition: stable Disposition: PACU Indications for Procedure: The patient is a 48-year-old female who presents with progressive right knee pain secondary to osteoarthrosis despite conservative measures. She had previously lost a substantial amount of weight. A discussion of the risks and benefits of operative intervention versus continued conservative measures was made to the patient. She opted to proceed with surgery. Specific risks of surgery to include infection, neurovascular injury, development of blood clots, fracture, possible component loosening/failure and possible need for subsequent procedures was discussed. Informed consent was obtained. Operative Findings: As below Description of Procedure: The patient was brought to the operating room, and after induction of spinal anesthesia the right lower extremity was prepped and draped in a normal fashion. The tourniquet was inflated to 270 mmHg. A longitudinal incision extending 3 finger breaths above the superior pole of the patella extending to the medial aspect the tibial tubercle was then made. The skin and subcutaneous tissues were divided sharply. Electrocautery was used for hemostasis. A medial parapatellar arthrotomy was then performed. The medial soft tissues to include the superficial and deep portions of the medial collateral ligament as well as the medial hamstring tendons were elevated subperiosteally. The proximal medial tibia osteophytes were carefully removed. The patella was everted. The knee was flexed. A portion of the retropatellar fat pad was excised sharply. The anterior cruciate ligament was sacrificed. A starting hole was made in the distal femur 1 cm anterior to the posterior cruciate origin. An intramedullary femoral guide was gently inserted planning on 5 valgus distal cut with 9 mm distal resection. The cutting block was pinned in place. The distal cut was then made. The posterior referencing sizing guide was utilized. 3 of external rotation was built into the system and verified off the trans- epicondylar axis and the posterior condyles. I felt size 5 narrow was most appropriate. The cutting block was pinned in place. The anterior, posterior, and chamfer cuts were then made. The bone fragments were removed. A sulcus cut was then made with the appropriate guide. The trial size 5 narrow femoral component was then placed and was fully seated. There was good anterior to posterior and medial to lateral fit. The distal peg holes were then drilled. The trial component was then removed. Attention was then paid towards preparing the proximal tibia. An extra medullary guide was utilized in line with the tib ial shaft and second metatarsal distally. A 7 posterior slope was planned. I planned on 2 mm resection from the medial compartment. The cutting block was pinned in place. The proximal tibial cut was then made. The bone was removed in one fragment. The remnants of the medial and lateral menisci were excised the capsule junction with electrocautery. The tibia sized most appropriately at size 4. The posterior osteophytes off the distal femur were carefully removed with a curved osteotome. The trial tibial and femoral components were placed along with a 11 millimeters articular surface. I was able to obtain full flexion and extension with good stability with varus and valgus stress. After several flexion and extension cycles, the tibial rotation was marked with electrocautery in line with the medial one third of the tibial tubercle. Attention was then paid towards preparing the patella. A patella reamer was utilized taking this down to 14 mm of bone stock. A good flush cut was made. The patella sized most appropriately at 32 millimeters. The peg holes were then drilled. The trial component was placed. The knee was taken through a range of motion. I had good patellofemoral tracking with no hands technique. The trial components were then removed. The tibia was prepared in the appropriate rotation with appropriate drill and keel punch. The flexion and extension gaps were checked and felt to be symmetric. The bony surfaces were prepared with pulsatile lavage and dried. The deep tibial component was then cemented in place and was fully seated. Excess cement was removed. The femoral component was cemented in place and was fully seated. Again excess cement was removed. The trial 11 millimeters surface was then inserted in the knee was put in full extension. The patella component was cemented in place. After the cement had sufficiently hardened, the knee was again taken through a range of motion. Again there was good stability in flexion and extension with varus and valgus stress. The trial articular surface was then removed. The final articular surface was placed and was impacted. Care was taken to avoid any soft tissue interposition. Pulsatile lavage was again utilized. The tourniquet was deflated with approximately 60 minutes total tourniquet time. There was minimal drainage therefore a deep drain was not placed. The medial parapatellar arthrotomy was then closed with #2 Ethibond suture. The subcutaneous tissues were reapproximated interrupted 2-0 Vicryl sutures. The skin was reapproximated with 3-0 subarticular strata fix suture. Skin tape and adhesive was applied. A sterile dressing was applied. The patient was then awoken from sedation and transferred to recovery room in good condition. Blood loss was estimated at 50 milliliters. No complications were incurred. Sponge and needle counts were correct at the end the case. Marcus CORNELIUS assisted during the major components this case to include exposure, bone resection, and implantation.
[2023-12-10] MEDS: ROPIVACAINE 1,100 MG, SODIUM CHLORIDE 0.9% 500 ML 330 ML, EMPTY PAIN BALL 1 EACH MISCELLANE PRN (12:22)
--- NOTE | 2023-12-10 13:19 | XR ---
EXAMINATION TYPE: XR knee limited RT DATE OF EXAM: 12/10/2023 12:40 PM CLINICAL INDICATION: Female, 48 years old with history of Evaluation for Postop abnormality and align ment; COMPARISON: None. TECHNIQUE: XR knee limited RT; examined in Frontal, lateral and oblique projections. FINDINGS: Status post total knee arthroplasty changes with hardware in appropriate alignment and in tact. No evidence of fracture. Subcutaneous lucencies and lucencies within the joint consistent with surgical changes. IMPRESSION: Status post total knee arthroplasty changes with hardware intact and appropriate alignment. No fractu res identified.
[2023-12-10] MEDS: HYDROmorphone 0.5 MG/0.5 ML SYRINGE IVP PRN (15:14)
[2023-12-10] MEDS: HYDROmorphone 1 MG/ML 1 ML SYRINGE IVP PRN (17:18)
[2023-12-10] MEDS: SENNOSIDES-DOCUSATE SODIUM 1 EACH TAB PO SCH (20:47)
[2023-12-10] MEDS: HYDROcodone/APAP 7.5-325MG 1 EACH TAB PO PRN (23:03)
[2023-12-11 04:01] LABS: Glucose,Whole Blood 110 mg/dL (70-110)
[2023-12-11] MEDS: HYDROmorphone 0.5 MG/0.5 ML SYRINGE IVP PRN (04:07)
[2023-12-11 05:39] LABS: Glucose,Whole Blood 107 mg/dL (70-110)
--- NOTE | 2023-12-11 06:51 | P.PN ---
Progress Note - Text Progress Note Date: 12/11/23 Postoperative day # 1 status post total knee arthroplasty, and adductor canal catheter placed for postoperative analgesia, currently at ropivacaine 0.2% 8 mL per hour and continuous infusion, visual analogue scale is 3/10, patient using oral pain medication for breakthrough pain. Assessment and plan= Acute postoperative pain, adductor canal catheter for pain control, pain is well controlled we'll continue the same management.
[2023-12-11] MEDS: RIVAROXABAN 10 MG TAB PO SCH (07:52)
[2023-12-11 08:27] VITALS: BP 100/57; PULSE 58; RESP 17; TEMP 97.9
[2023-12-11 09:38] LABS: Basophils # (A) 0.02 X 10*3/uL (0.00-0.10); Basophils % (A) 0.3 %; Eosinophils # (A) 0.08 X 10*3/uL (0.04-0.35); HCT 31.6 % (37.2-46.3); HGB 10.3 g/dL (12.0-15.0); Lymphocytes # (A) 1.43 X 10*3/uL (0.90-5.00); Lymphocytes % (A) 18.2 %; MCH 31.8 pg (27.0-32.0); MCHC 32.6 g/dL (32.0-37.0); MCV 97.5 FL (80.0-97.0); Mean Platelet Volume 10.4 FL (9.5-12.2); Monocytes # (A) 0.52 X 10*3/uL (0.20-1.00); Monocytes % (A) 6.6 %; NRBC Per 100 WBC 0 X 10*3/uL (0.00-0.01); Neutrophils # (A) 5.78 X 10*3/uL (1.80-7.70); Neutrophils % (A) 73.4 %; Platelet Count 174 X 10*3/uL (140-440); RBC 3.24 X 10*6/uL (4.10-5.20); WBC 7.87 X 10*3/uL (4.50-10.00)
[2023-12-11 11:16] LABS: Glucose,Whole Blood 113 mg/dL (70-110)
--- NOTE | 2023-12-11 13:01 | P.DS ---
Providers Date of admission: 12/10/2023 Expected date of discharge: 12/11/23 Attending physician: Jung De La Cruz Consults: 12/10/23 11:58 Consult Physician Routine Consulting Provider: Gurpreet Scott Consult Reason/Comments: medical management s/p right total knee arthroplasty Do you want consulting provider notified?: Yes Primary care physician: Garry Graves MD Hospital Course: Date of admission: 12/10/2023 Date of discharge: 12/03/2023 Admission diagnosis: Right knee osteoarthritis Discharge diagnosis: Same Attending physician: Dr. De La Cruz Surgical procedures: Right total knee arthroplasty Brief history: Patient is a 48-year-old female with a history of progressive primary right knee osteoarthritis. At this point patient has failed conservative treatment measures and has opted to proceed with a elective right total knee arthroplasty. Hospital course: Details of patient's surgery can be found in operative report. Patient tolerated the procedure well and was subsequently transported to orthopedic floor. Patient's orthopeidc and medical care was provided daily. Patient had daily laboratory tests performed for evaluation of overall blood counts. Patient had daily physical therapy to include strengthening range of motion as well as education with walker ambulation. Patient was treated with Xarelto for their postoperative DVT prophylaxis during their inpatient stay. Patient was noted to have a relatively uneventful postoperative course. Patient reported satisfactory pain control with oral pain medications by postoperative day 1. Patient showed satisfactory progress with physical therapy. Patient moved steadily through the program and had no difficulty meeting the goals by postoperative day 1. Given patient's otherwise satisfactory course and having met physical therapy goals, plan is to discharge patient home with health services on postoperative day 1. Discharge condition/disposition: Patient will be discharged home with health services in stable condition. Discharge medications: Instructions are given on resumption of patient's normal daily medications per primary care recommendation, in addition patient will be prescribed Ventress; senna; Eliquis 2.5 mg twice a day twice a day 2 weeks. Discharge instructions: 1. Wound care and infection precautions, keep incision dry and covered while showering, no lotions, creams, moisturizers. No soaking, tubs, pools, hottubs. Do not scrub over the incision. 2. Weight-bear as tolerated with walker / cane until follow-up. 3. Ice and elevate when necessary. Do not exceed 20 minutes per hour with ice pack. 4. Utilize compression sleeve until seen at first follow up appointment. 5. Visiting nursing care. 6. Home physical therapy including home CPM. 7. Pain meds and anticoagulants per prescription. 8. Pain medication has potential to cause constipation. Increase oral fluid and fiber intake. Contact primary care provider if you have not had a bowel movement within 48 hours after discharge 9. No anti-inflammatory medication until discussed at first post operative visit, this including Motrin, Aleve, Mobic, Diclofenac. 10. Follow up in office at 2 weeks postop with Case Vega PA-C / Marcus Lobo PA-C 11. Follow up with your primary care doctor 7-10 days after discharge. 12. Contact [facility] with any questions, . Assessment: Right knee osteoarthritis Procedures: Right total knee arthroplasty Patient Condition at Discharge: Good Plan - Discharge Summary New Discharge Prescriptions: New HYDROcodone/APAP 7.5-325MG [Ventress 7.5-325] 1 - 2 tab PO Q6HR PRN #32 tab PRN Reason: Pain Apixaban [Eliquis] 2.5 mg PO BID #60 tab Sennosides/Docusate Sodium [Senna Plus 8.6-50 mg Softgel] 1 each PO DAILY #20 capsule No Action Omeprazole 40 mg PO BID Escitalopram Oxalate [Lexapro] 20 mg PO DAILY metFORMIN HCL 1,000 mg PO BID Losartan [Cozaar] 100 mg PO DAILY LORazepam [Ativan] 1 mg PO TID busPIRone HCL [Buspar] 30 mg PO BID Levothyroxine Sodium [Synthroid] 150 mg PO DAILY Ibuprofen [Motrin] 800 mg PO Q8H PRN PRN Reason: Pain Torsemide [Demadex] 10 mg PO DAILY HYDROcodone/APAP 5-325MG [[place]ress 5-325] 1 tab PO BID PRN PRN Reason: Pain Sertraline [Zoloft] 50 mg PO DAILY Baclofen [Lioresal] 20 mg PO QID Cariprazine HCl [Vraylar] 6 mg PO HS OXcarbazepine [Trileptal] 300 mg PO BID Discharge Medication List Baclofen [Lioresal] 20 mg PO QID 12/09/23 [History] Cariprazine HCl [Vraylar] 6 mg PO HS 12/09/23 [History] Escitalopram Oxalate [Lexapro] 20 mg PO DAILY 12/09/23 [History] HYDROcodone/APAP 5-325MG [[place]ress 5-325] 1 tab PO BID PRN 12/09/23 [History] Ibuprofen [Motrin] 800 mg PO Q8H PRN 12/09/23 [History] LORazepam [Ativan] 1 mg PO TID 12/09/23 [History] Levothyroxine Sodium [Synthroid] 150 mg PO DAILY 12/09/23 [History] Losartan [Cozaar] 100 mg PO DAILY 12/09/23 [History] OXcarbazepine [Trileptal] 300 mg PO BID 12/09/23 [History] Omeprazole 40 mg PO BID 12/09/23 [History] Sertraline [Zoloft] 50 mg PO DAILY 12/09/23 [History] Torsemide [Demadex] 10 mg PO DAILY 12/09/23 [History] busPIRone HCL [Buspar] 30 mg PO BID 12/09/23 [History] metFORMIN HCL 1,000 mg PO BID 12/09/23 [History] Apixaban [Eliquis] 2.5 mg PO BID #60 tab 12/11/23 [Rx] HYDROcodone/APAP 7.5-325MG [V[place]ress 7.5-325] 1 - 2 tab PO Q6HR PRN #32 tab 12/11/23 [Rx] Sennosides/Docusate Sodium [Senna Plus 8.6-50 mg Softgel] 1 each PO DAILY #20 capsule 12/11/23 [Rx] Follow up Appointment(s)/Referral(s): Marcus Lobo PAC [PHYSICIAN E[employer] INSPECTOR AND REPAIRER] - 12/25/23 9:00 am [facility] [NON-STAFF] - 1 Week Patient Instructions/Handouts: Knee Replacement (DC), Knee Replacement (GEN) Activity/Diet/Wound Care/Special Instructions: Orthopedic Discharge Instructions: 1. Wound care and infection precautions, keep incision dry and covered while showering, no lotions, creams, moisturizers. No soaking, pools, hot tubs. Do not scrub over incision. 2. Weight-bear as tolerated with walker / cane until follow-up. 3. Ice and elevate when necessary. Do not exceed 20 minutes per hour with ice pack. 4. Utilize compression sleeve until seen at first follow up appointment. 5. Pain meds and anticoagulants per prescription. 6. Pain medication has potential to cause constipation. Increase oral fluid and fiber intake. Contact primary care provider if you have not had a bowel movement within 48 hours after discharge. 7. No anti-inflammatory medication until discussed at first post operative visit, this including Motrin, Aleve, Mobic, Diclofenac. 8. Follow up in office at 2 weeks postop with Case Vega PA-C / Marcus Lobo PA-C 9. Follow up with your primary care doctor 7-10 days after discharge. 10. Contact [facility] with any questions, . Keep incision clean, dry, intact. While showering, cover fusion tape with Saran wrap. Keep fusion tape on until follow-up appointment in office in 2 weeks. Discharge Disposition: HOME WITH HOME HEALTH SERVICES
--- NOTE | 2023-12-11 13:10 | P.PN ---
Subjective Progress Note Date: 12/11/23 Principal diagnosis: Right knee osteoarthritis Patient was seen at bedside this morning lying semirecumbent position. Patient says she is looking forward to going home later today. She says she did do well with therapy this morning. She says she has urinated since surgery yesterday without issue. She says she has not had bowel movement yet, however, patient says she has been passing gas. Patient says most the pain is located in the front of the knee. She says she has been icing her knee as needed. Patient says she does have a walker home. Patient denies chest pain, fever, shortness breath, nausea, incontinuity, loss of bowel/bladder control. Objective - Vital Signs Vital signs: Vital Signs Temp 97.9 F 12/11/23 08:00 Pulse 58 L 12/11/23 08:00 Resp 17 12/11/23 08:00 BP 100/57 12/11/23 08:00 Pulse Ox 98 12/11/23 08:00 FiO2 Intake & Output 12/10/23 12/11/23 12/11/23 18:59 06:59 18:59 Intake Total 2251 Output Total 50 Balance 2201 Weight 88.2 kg Intake: IV 2251 Output: Estimated Blood Loss 50 Other: Voiding Method Toilet # Voids 1 1 2 - Exam Right knee: Incision is clean, dry, and intact. The exofin fusion tape is in good condition. There is minimal soft tissue swelling and ecchymosis surrounding the medial and lateral aspects of the incision. Calf is soft, no tenderness with palpation. Plantar flexion, dorsiflexion, EHL, FHL are intact. Sensory exam to light touch throughout the extremity is intact, dorsal pedis pulses 2+. - Labs CBC & Chem 7: 12/11/23 05:30 Labs: Abnormal Lab Results - Last 24 Hours (Table) 12/11/23 12/11/23 Range/Units 05:30 11:15 RBC 3.24 L (4.10-5.20) X 10*6/uL Hgb 10.3 L (12.0-15.0) g/dL Hct 31.6 L (37.2-46.3) % MCV 97.5 H (80.0-97.0) FL POC Glucose (mg/dL) 113 H (70-110) mg/dL Assessment and Plan Assessment: 1. Right knee osteoarthritis - Postop day 1 status post right total knee arthroplasty Plan: 1. Right knee osteoarthritis - right total knee arthroplasty performed yesterday, 12/10/2023. Patient stable bedside this morning. Patient did do well with PT/OT this morning. Patient does have a walker for home. Discharge home today with health services. 2. Appreciate medical management 3. Pain management - [facility] 4. DVT prophylaxis - Xarelto in hospital. Going home with eliquis 2.5 mg twice a day 2 weeks 5. GI prophylaxis - senna 6. PT/OT - weightbearing as tolerated with walker 7. Encourage incentive spirometer use 8. Discharge planning - home today with health services Time with Patient: Less than 30
--- NOTE | 2023-12-12 15:16 | P.CONS ---
History of Present Illness - Reason for Consult Consult date: 12/11/23 Medical management, status post right knee arthroplasty - History of Present Illness This is a pleasant 48-year-old female who was admitted under orthopedic services status post right total knee arthroplasty. Patient reports that she follows with Dr. Graves in the outpatient setting with a past medical history of heart elza lure, diabetes, GERD, hypertension, osteoarthritis, sleep apnea with a CPAP, optic neuritis, anxiety with bipolar depression and schizoaffective disorder. Patient reports to doing extremely well overnight other than not receiving her home medications. Home medications were not reviewed and reconciled prior to this morning. Patient reports her boyfriend brought her home medications in. Patient reports she did follow with her primary care provider in the outpatient setting for presurgical clearance. Patient is medically stable once cleared by orthopedics for discharge today. Patient does have support in the home and will be going home. REVIEW OF SYSTEMS: CONSTITUTIONAL: No fever, no malaise, no fatigue. HEENT: No recent visual problems or hearing problems. Denied any sore throat. CARDIOVASCULAR: No chest pain, orthopnea, PND, no palpitations, no syncope. PULMONARY: No shortness of breath, no cough, no hemoptysis. GASTROINTESTINAL: No diarrhea, no nausea, no vomiting, no abdominal pain. NEUROLOGICAL: No headaches, no weakness, no numbness. HEMATOLOGICAL: Denies any bleeding or petechiae. GENITOURINARY: Denies any burning micturition, frequency, or urgency. MUSCULOSKELETAL/RHEUMATOLOGICAL: Denies any joint pain, swelling, or any muscle pain. ENDOCRINE: Denies any polyuria or polydipsia. The rest of the 14-point review of systems is negative. PHYSICAL EXAMINATION: GENERAL: The patient is alert and oriented x3, not in any acute distress. Well developed, well nourished. Obese HEENT: Pupils are round and equally reacting to light. EOMI. No scleral icterus. No conjunctival pallor. Normocephalic, atraumatic. No pharyngeal erythema. No thyromegaly. CARDIOVASCULAR: S1 and S2 present. No murmurs, rubs, or gallops. PULMONARY: Chest is clear to auscultation, no wheezing or crackles. ABDOMEN: Soft, nontender, nondistended, normoactive bowel sounds. No palpable organomegaly. MUSCULOSKELETAL: No joint swelling or deformity. EXTREMITIES: No cyanosis, clubbing, or pedal edema. Right surgical knee dressing is dry and intact with minimal swelling noted and no redness NEUROLOGICAL: Gross neurological examination did not reveal any focal deficits. SKIN: No rashes. Assessment: Status post right total knee arthroplasty, postop day 1 History of GERD Hypertension history Osteoarthritis history Sleep apnea with a CPAP History of anxiety/bipolar depression and schizoaffective disorder Obesity with a BMI of 33.4 GI prophylaxis DVT prophylaxis Full code Plan: Patient was admitted under orthopedics status post right total knee arthroplasty and doing relatively well. Patient was working with physical therapy today and reports will be going home and has support in the home. Patient with incentive spirometer at the bedside encouraged to use at least 10 times every hour while awake Patient is a diabetic and started on Accu-Cheks before meals and at bedtime along with sliding scale and will continue. Instructed patient to resume home medications once discharged. Patient does take metformin in the outpatient setting. Patient is medically stable for discharge once cleared by orthopedics. Thank you kindly for this consultation. We will continue to follow during hospitalization. The impression and plan of care has been dictated by Loan Godwin, Nurse Practitioner as directed. Dr. Jason MD I have performed a history and examination and MDM of this patient, discussed the same with the dictator, and agree with the dictator's assessment and plan as written ,documented as a scribe. Based on total visit time, I have performed more than 50% of the visit. Past Medical History Past Medical History: Heart Failure, Diabetes Mellitus, Eye Disorder, GERD/Reflux, Hypertension, Liver Disease, Osteoarthritis (OA), Skin Disorder, Sleep Apnea/CPAP/BIPAP, Thyroid Disorder Additional Past Medical History / Comment(s): Pt has sleep apnea with cpap. Hx heart failure Feb 2014 (patient states he no longer has heart failure-2019). Optic neurititis, left eye, fatty liver, Rosacea on face. History of Any Multi-Drug Resistant Organisms: MRSA Year Discovered:: 2013 MDRO Source:: Chin, Nose Past Surgical History: Cholecystectomy, Tonsillectomy Additional Past Surgical History / Comment(s): Kidney stone stent placed left side. States bled out after tonsilectomy at 27 yrs of age and had blood transfusion. gastric sleeve december 2018 Past Anesthesia/Blood Transfusion Reactions: No Reported Reaction Past Psychological History: Anxiety, Bipolar, Depression, Schizoaffective Disorder Additional Psychological History / Comment(s): PT LIVES WITH 8 YR OLD SON. 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 Smoking Status: Former smoker Past Alcohol Use History: Occasional Additional Past Alcohol Use History / Comment(s): Patient states that she drink alcohol once a week. Past Drug Use History: None Reported - Past Family History Son(s) Family Medical History: Seizure Disorder Mother Family Medical History: No Reported History Additional Family Medical History / Comment(s): MOTHER IS ALIVE AND DOING WELL AT AGE 56, Bipolar Father Family Medical History: No Reported History Additional Family Medical History / Comment(s): Hepatitis Medications and Allergies Home Medications Medication Instructions Recorded Confirmed Type Baclofen [Lioresal] 20 mg PO QID 12/09/23 12/09/23 History Cariprazine HCl [Vraylar] 6 mg PO HS 12/09/23 12/10/23 History Escitalopram Oxalate [Lexapro] 20 mg PO DAILY 12/09/23 12/09/23 History HYDROcodone/APAP 5-325MG [[place] 1 tab PO BID PRN 12/09/23 12/10/23 History 5-325] Ibuprofen [Motrin] 800 mg PO Q8H PRN 12/09/23 12/10/23 History LORazepam [Ativan] 1 mg PO TID 12/09/23 12/09/23 History Levothyroxine Sodium [Synthroid] 150 mg PO DAILY 12/09/23 12/09/23 History Losartan [Cozaar] 100 mg PO DAILY 12/09/23 12/09/23 History OXcarbazepine [Trileptal] 300 mg PO BID 12/09/23 12/09/23 History Omeprazole 40 mg PO BID 12/09/23 12/09/23 History Sertraline [Zoloft] 50 mg PO DAILY 12/09/23 12/09/23 History Torsemide [Demadex] 10 mg PO DAILY 12/09/23 12/10/23 History busPIRone HCL [Buspar] 30 mg PO BID 12/09/23 12/09/23 History metFORMIN HCL 1,000 mg PO BID 12/09/23 12/10/23 History Apixaban [Eliquis] 2.5 mg PO BID #60 tab 12/11/23 Rx HYDROcodone/APAP 7.5-325MG [[place] 1 - 2 tab PO Q6HR PRN #32 tab 12/11/23 Rx 7.5-325] Sennosides/Docusate Sodium [Senna 1 each PO DAILY #20 capsule 12/11/23 Rx Plus 8.6-50 mg Softgel] Allergies Allergy/AdvReac Type Severity Reaction Status Date / Time No Known Allergies Allergy Verified 12/10/23 08:45 Physical Exam Vitals: Vital Signs Temp Pulse Pulse Resp BP Pulse Ox 12/11/23 08:00 97.9 F 58 L 17 100/57 98 12/11/23 01:44 97.8 F 114 H 108/70 98 12/10/23 20:47 16 12/10/23 20:00 97.9 F 61 130/81 98 12/10/23 16:30 69 18 116/59 98 12/10/23 15:00 72 16 123/72 98 12/10/23 14:00 52 L 16 94/49 98 12/10/23 13:30 56 L 16 100/55 98 12/10/23 13:15 51 L 16 103/61 98 12/10/23 13:02 50 L 16 97/54 98 12/10/23 12:47 50 L 16 90/49 97 12/10/23 12:32 49 L 16 101/54 96 12/10/23 12:17 97.4 F L 50 L 16 110/56 99 Intake and Output 12/10/23 12/11/23 12/11/23 22:59 06:59 14:59 Intake Total 1000 Balance 1000 Intake: IV 1000 Other: Voiding Method Toilet # Voids 1 1 1 Weight 88.2 kg Results CBC & Chem 7: 12/11/23 05:30 Labs: Abnormal Lab Results - Last 24 Hours (Table) 12/11/23 Range/Units 05:30 RBC 3.24 L (4.10-5.20) X 10*6/uL Hgb 10.3 L (12.0-15.0) g/dL Hct 31.6 L (37.2-46.3) % MCV 97.5 H (80.0-97.0) FL
== END 2023-12-11 13:42 | disposition home health service (06) ==
LOC: OR 08:24 → 4SSUR 12:17 → OR 12-11 12:32
PROVIDERS: ADMIT Orthopaedic Surgery; ATTEND Orthopaedic Surgery
DX: M17.11 Unilateral primary osteoarthritis, right knee (principal); G89.18 Other acute postprocedural pain; M21.161 Varus deformity, not elsewhere classified, right knee; I11.0 Hypertensive heart disease with heart failure; I50.9 Heart failure, unspecified; E11.9 Type 2 diabetes mellitus without complications; F25.9 Schizoaffective disorder, unspecified; F31.9 Bipolar disorder, unspecified; E07.9 Disorder of thyroid, unspecified; K76.0 Fatty (change of) liver, not elsewhere classified; H46.9 Unspecified optic neuritis; K21.9 Gastro-esophageal reflux disease without esophagitis; G47.30 Sleep apnea, unspecified; F41.9 Anxiety disorder, unspecified; G47.33 Obstructive sleep apnea (adult) (pediatric); Z68.33 Body mass index [BMI] 33.0-33.9, adult; Z79.890 Hormone replacement therapy; Z79.84 Long term (current) use of oral hypoglycemic drugs; Z79.899 Other long term (current) drug therapy; Z87.891 Personal history of nicotine dependence
CPT/HCPCS: 64448; 64999; 81025; 85025